=== PATIENT | female | born 1965 | race Caucasian/White ===

== ENCOUNTER 2022-05-19 09:14 | Outpatient (CLI) | payer OTHER, SELFPAY ==
[2022-05-19 13:41] LABS: Albumin* 4.1 g/dL (3.3-5.0); Chloride* 106 mmol/L (96-114); Sodium* 137 mmol/L (135-149)
[2022-05-19 13:42] LABS: Potassium* 4.4 mmol/L (3.6-5.1)
[2022-05-19 13:44] LABS: Aspartate Amino Transferase* 26 U/L (12-35); Bilirubin Total* 0.8 mg/dL (0.1-1.5); Carbon Dioxide* 26 mmol/L (20-32); Cholesterol* 210 mg/dL (90-199); Creatinine* 0.9 mg/dL (0.5-1.5); Estimated Glomerular Filt Rate 74 ml/min; Total Protein* 6.8 g/dL (6.0-8.3)
[2022-05-19 13:45] LABS: Alanine Aminotransferase* 29 U/L (4-35); Alkaline Phosphatase* 90 U/L (40-150); Blood Urea Nitrogen* 12 mg/dL (7-30); Calcium* 9.3 mg/dL (8.4-10.6); HDL Cholesterol* 65 mg/dL (>=50); LDL Cholesterol Calculated 124 mg/dL (<100); Triglycerides* 107 mg/dL (40-149); Uric Acid* 3.8 mg/dL (2.2-8.4)
[2022-05-19 13:47] LABS: C Reactive Protein* 0.7 mg/dL (0.5-1.0)
[2022-05-19 14:03] LABS: Glucose* 112 mg/dL (60-115)
[2022-05-19 14:27] LABS: Thyroid Stimulating Hormone* 0.856 uIU/mL (0.270-4.20)
== END 2022-05-19 09:15 | disposition home or self-care (01) ==
LOC: LKVLAB 09:14
PROVIDERS: PCP Physician Assistant Medical; Visit Provider Physician Assistant Medical
DX: Z00.00 Encounter for general adult medical examination without abnormal findings (principal); M25.50 Pain in unspecified joint
CPT/HCPCS: 36415; 80053; 80061; 84443; 84550; 86140; 87086

== ENCOUNTER 2023-01-07 15:57 | Outpatient (CLI) | payer OTHER, SELFPAY | END 2023-01-07 15:58 | disposition home or self-care (01) | PROVIDERS: PCP Physician Assistant Medical; Visit Provider Physician Assistant Medical | DX: M54.6 Pain in thoracic spine (principal); E78.5 Hyperlipidemia, unspecified | CPT/HCPCS: 80053; 83690 ==

== ENCOUNTER 2023-09-27 10:44 | Outpatient (CLI) | payer OTHER, SELFPAY ==
--- OUTSIDE RECORDS SUMMARY | 2023-09-27 10:47 | XMS_ITS | Continuity of Care Document ---
Author Name Unknown Organization [facility] Address [address] [place] [address] Phone Care Team Providers Care Bilingual Medical Assistant Name Role Phone Nguyễn JONES, Maya Unavailable Unavailable Allergies, Adverse Reactions, Alerts Substance Reaction Status Criticality No Known Allergies Active No Inform ation Medications Medication Instructions Dosage Effective Dates (start - stop) Status Comments LEFLUNOMIDE 20 MG TABLET TAKE 1 TABLET BY MOUTH EVERY OTHER DAY - Active FOLIC ACID 1 MG TABLET TAKE 1 TABLET BY MOUTH EVERY DAY - Active Calcium 600 + D(3) 600 mg-10 mcg (400 unit) tablet take 1 Tablet by Oral route every day 1 Tablet - Active Ambien 10 mg tablet take 1 tablet by oral route every day at bedtime 10 MG - Active nicotine 21 mg/24 hr daily transdermal patch apply 1 patch by transdermal route every day and remove at bedtime 21 MG - Active LEFLUNOMIDE 20 MG TABLET TAKE 1 TABLET BY MOUTH EVERY OTHER DAY - No Longer Active Procedures Procedure Date Routine Venipuncture Assay Of Serum Albumin Assay Of Creatinine Transferase (Ast) (Sgot) Alanine Amino (Alt) (Sgpt) Complete Cbc WAuto Diff Wbc Office/Outpatient Visit, Est Routine Venipuncture Assay Of Serum Albumin Assay Of Creatinine Transferase (Ast) (Sgot) Alanine Amino (Alt) (Sgpt) Complete Cbc WAuto Diff Wbc Routine Venipuncture Assay Of Serum Albumin Assay Of Creatinine Transferase (Ast) (Sgot) Alanine Amino (Alt) (Sgpt) Complete Cbc WAuto Diff Wbc Office/Outpatient Visit, Est Routine Venipuncture Assay Of Serum Albumin Assay Of Creatinine Transferase (Ast) (Sgot) Alanine Amino (Alt) (Sgpt) Complete Cbc WAuto Diff Wbc Routine Venipuncture Assay Of Serum Albumin Assay Of Creatinine Transferase (Ast) (Sgot) Alanine Amino (Alt) (Sgpt) CReactive Protein Complete Cbc WAuto Diff Wbc Office/Outpatient Visit, Est Routine Venipuncture Assay Of Serum Albumin Assay Of Creatinine Transferase (Ast) (Sgot) Alanine Amino (Alt) (Sgpt) CReactive Protein Complete Cbc WAuto Diff Wbc Office/Outpatient Visit, Est Routine Venipuncture Rbc Sed Rate, Nonautomated Assay Of Serum Albumin Assay Of Creatinine Transferase (Ast) (Sgot) Alanine Amino (Alt) (Sgpt) CReactive Protein Complete Cbc WAuto Diff Wbc Office/Outpatient Visit, Est Routine Venipuncture Assay Of Serum Albumin Assay Of Creatinine Transferase (Ast) (Sgot) Alanine Amino (Alt) (Sgpt) CReactive Protein Complete Cbc WAuto Diff Wbc Office/Outpatient Visit, Est Routine Venipuncture Rbc Sed Rate, Nonautomated Assay Of Serum Albumin Assay Of Creatinine Transferase (Ast) (Sgot) Alanine Amino (Alt) (Sgpt) CReactive Protein Complete Cbc WAuto Diff Wbc Office/Outpatient Visit, Est Routine Venipuncture Assay Of Serum Albumin Assay Of Creatinine Transferase (Ast) (Sgot) Alanine Amino (Alt) (Sgpt) Complete Cbc WAuto Diff Wbc Office/Outpatient Visit, Est Routine Venipuncture Assay Of Serum Albumin Assay Of Creatinine Transferase (Ast) (Sgot) Alanine Amino (Alt) (Sgpt) Complete Cbc WAuto Diff Wbc Office/Outpatient Visit, Est Routine Venipuncture Assay Of Serum Albumin Assay Of Creatinine Transferase (Ast) (Sgot) Alanine Amino (Alt) (Sgpt) Complete Cbc WAuto Diff Wbc Office/Outpatient Visit, Est Routine Venipuncture Assay Of Serum Albumin Assay Of Creatinine Transferase (Ast) (Sgot) Alanine Amino (Alt) (Sgpt) Complete Cbc WAuto Diff Wbc Office/Outpatient Visit, Est Routine Venipuncture Assay Of Serum Albumin Assay Of Creatinine Transferase (Ast) (Sgot) Alanine Amino (Alt) (Sgpt) Complete Cbc WAuto Diff Wbc Office/Outpatient Visit, Est Routine Venipuncture Assay Of Serum Albumin Assay Of Creatinine Transferase (Ast) (Sgot) Alanine Amino (Alt) (Sgpt) Complete Cbc WAuto Diff Wbc Office/Outpatient Visit, Est Routine Venipuncture Complete Cbc WAuto Diff Wbc CReactive Protein Assay Of Serum Albumin Assay Of Ck (Cpk) Assay Of Creatinine Assay Alkaline Phosphatase Transferase (Ast) (Sgot) Assay Of Blood/Uric Acid Office/Outpatient Visit, Est Office/Outpatient Visit, Est Routine Venipuncture Complete Cbc WAuto Diff Wbc Rbc Sed Rate, Nonautomated CReactive Protein Assay Of Serum Albumin Assay Of Ck (Cpk) Assay Of Creatinine Assay Alkaline Phosphatase Transferase (Ast) (Sgot) Assay Of Blood/Uric Acid Office/Outpatient Visit, Est Routine Venipuncture Complete Cbc WAuto Diff Wbc Rbc Sed Rate, Nonautomated CReactive Protein Assay Of Serum Albumin Assay Of Creatinine Transferase (Ast) (Sgot) Alanine Amino (Alt) (Sgpt) Office/Outpatient Visit, Est Routine Venipuncture Complete Cbc WAuto Diff Wbc CReactive Protein Assay Of Serum Albumin Assay Of Creatinine Transferase (Ast) (Sgot) Alanine Amino (Alt) (Sgpt) Office/Outpatient Visit, Est Office/Outpatient Visit, Est Routine Venipuncture Complete Cbc WAuto Diff Wbc Rbc Sed Rate, Nonautomated CReactive Protein Assay Of Serum Albumin Assay Of Creatinine Transferase (Ast) (Sgot) Alanine Amino (Alt) (Sgpt) Office/Outpatient Visit, Est Routine Venipuncture Complete Cbc WAuto Diff Wbc Assay Of Serum Albumin Assay Of Creatinine Transferase (Ast) (Sgot) Alanine Amino (Alt) (Sgpt) Office/Outpatient Visit, Est Routine Venipuncture Complete Cbc WAuto Diff Wbc Assay Of Serum Albumin Assay Of Creatinine Transferase (Ast) (Sgot) Alanine Amino (Alt) (Sgpt) Dxa Bone Density, Axial Office/Outpatient Visit, Est Routine Venipuncture Complete Cbc WAuto Diff Wbc CReactive Protein Assay Of Serum Albumin Assay Of Creatinine Transferase (Ast) (Sgot) Alanine Amino (Alt) (Sgpt) Office/Outpatient Visit, Est Routine Venipuncture Complete Cbc WAuto Diff Wbc Assay Of Serum Albumin Assay Of Creatinine Transferase (Ast) (Sgot) Alanine Amino (Alt) (Sgpt) Office/Outpatient Visit, Est Routine Venipuncture Specimen Handling Complete Cbc WAuto Diff Wbc Rbc Sed Rate, Nonautomated CReactive Protein Assay Of Serum Albumin Assay Of Ck (Cpk) Assay Of Creatinine Assay Alkaline Phosphatase Transferase (Ast) (Sgot) Assay Of Blood/Uric Acid Office/Outpatient Visit, Est Office/Outpatient Visit, Est Routine Venipuncture Complete Cbc WAuto Diff Wbc Rbc Sed Rate, Nonautomated CReactive Protein Assay Of Serum Albumin Assay Of Creatinine Transferase (Ast) (Sgot) Alanine Amino (Alt) (Sgpt) Office/Outpatient Visit, New Routine Venipuncture XRay Exam Of Hand 2v XRay Exam Of Hand 2v Complete Cbc WAuto Diff Wbc Rbc Sed Rate, Nonautomated CReactive Protein Assay Of Serum Albumin Assay Of Ck (Cpk) Assay Of Creatinine Assay Alkaline Phosphatase Transferase (Ast) (Sgot) Assay Of Blood/Uric Acid Advance Directives Directive Yes / No Effective Date File Name No Information Encounters Encounter Description Practice Location Reason(s) For Visit Diagnoses Date Provider Providers Copied on Encounter [facility] , [address], [place], [address], [place] tel:[phone] [facility] , No Information 3 Skemp Maya. [facility] [address], [place], [place], [address], [place]. tel:[phone] [facility] , [address], [place], [address], [place] tel:[phone] [facility] No Information 3 Skemp Maya. [facility] [address], [place], [address], [place]. tel:[phone] [facility] , [address], [place], [address], [place] tel:[phone] [facility] , No Information 3 Skemp Maya. [facility] [address], [place], [address], [place]. tel:[phone] Referring Provider: Maya Geiger, [facility] [address], [place], [address]. tel:[phone] [facility] , [address], [place], [address], [place] tel:[phone] [facility] No Information 3 Skemp Maya. [facility] [address], [place], [address], [place]. tel:[phone] Office/Outpa tient Visit, Est [facility] , [address], [place], [address], [place] tel:[phone] [facility] , Palindromic rheumatism, unspecified siteHidraden itis suppurativaO ther mcfp (current) drug therapyTrigg er fingerPrimar y osteoarthrit is, unspecified hand 3 Skemp Maya. [facility] [address], [place], [address], [place]. tel:[phone] Referring Provider: Maya Adrian A, [facility] [address], [place], [address]. tel:[phone] [facility] , [address], [place], [address], [place] tel:[phone] [facility] , No Information 2 Skemp Maya. [facility] [address], [place], [address], [place]. tel:[phone] Referring Provider: Maya Adrian A, [facility] [address], [place], [address]. tel:[phone] Office/Outpa tient Visit, Est [facility] , [address], [place], [address], [place] tel:[phone] [facility] , Palindromic rheumatismOt her remote computer terminal operator (current) drug therapyPrima ry osteoarthrit is, unspecified hand 2 Skemp Maya. [facility] [address], [place], [address], [place]. tel:[phone] Referring Provider: Maya Geiger, [facility] [address], [place], [address]. tel:[phone] [facility] , [address], [place], [address], [place] tel:[phone] [facility] , No Information 2 Skemp Maya. [facility] [address], [place], [address], [place]. tel:[phone] Referring Provider: Maya Adrian A, [facility] [address], [place], [address]. tel:[phone] Office/Outpa tient Visit, Est [facility] , [address], [place], [address], [place] tel:[phone] [facility] , Rheumatoid arthritis without rheumatoid factor, multiple sitesOther remote computer terminal operator (current) drug therapyPrima ry osteoarthrit is, unspecified handOther spondylosis, cervical region 2 Skemp Maya. [facility] [address], [place], [address], [place]. tel:[phone] Referring Provider: Maya Geiger, [facility] [address], [place], [address]. tel:[phone] Office/Outpa tient Visit, Est [facility] , [address], [place], [address], [place] tel:[phone] [facility] , Inflammatory Polyarthropa thy (chief complaint)Mo nitor Chronic High Risk Meds (chief complaint)Os teoarthritis (chief complaint) Rheumatoid arthritis without rheumatoid factor, multiple sitesOther remote computer terminal operator (current) drug therapyPrima ry osteoarthrit is, unspecified handOther spondylosis, cervical regionTingli ng skin 1 Skemp Maya. [facility] [address], [place], [address], [place]. tel:[phone] Referring Provider: Maya Geiger [facility] [address], [place], [address]. tel:[phone] Office/Outpa tient Visit, Est [facility] , [address], [place], [address], [place] tel:[phone] [facility] , Rheumatoid arthritis without rheumatoid factor, multiple sitesOther remote computer terminal operator (current) drug therapyPrima ry osteoarthrit is, unspecified hand 1 Skemp Maya. [facility] [address], [place], [address], [place]. tel:[phone] Referring Provider: Maya Geiger, [facility] [address], [place], [address]. tel:[phone] Office/Outpa tient Visit, Est [facility] , [address], [place], [address], [place] tel:[phone] [facility] , Rheumatoid arthritis without rheumatoid factor, multiple sitesOther remote computer terminal operator (current) drug therapyHidra denitis suppurativaP rimary osteoarthrit is, unspecified handOther specified counseling Dec- 1 Skemp Maya. [facility] [address], [place], [address], [place]. tel:[phone] Referring Provider: Maya Geiger, [facility] [address], [place], [address]. tel:[phone] Office/Outpa tient Visit, Est [facility] , [address], [place], [address], [place] tel:[phone] [facility] , Rheumatoid arthritis without rheumatoid factor, multiple sitesOther remote computer terminal operator (current) drug therapyHidra denitis suppurativaP leural effusion in other conditions classified elsewherePri darwin osteoarthrit is, unspecified handOther dorsalgia 0 Skemp Maya. [facility] [address], [place], [address], [place]. tel:[phone] Referring Provider: Maya Geiger, [facility] [address], [place], [address]. tel:[phone] Office/Outpa tient Visit, Est [facility] , [address], [place], [address], [place] tel:[phone] [facility] , Inflammatory Polyarthropa thy (chief complaint)Mo nitor Chronic High Risk Meds (chief complaint) Rheumatoid arthritis w/o rheumatoid factor, multiple sitesOther remote computer terminal operator (current) drug therapyPrima ry osteoarthrit is, unspecified hand Sep- 0 Skemp Maya. [facility] [address], [place], [address], [place]. tel:[phone] Referring Provider: Maya Geiger, [facility] [address], [place], [address]. tel:[phone] Office/Outpa tient Visit, Est [facility] , [address], [place], [address], [place] tel:[phone] [facility] , Inflammatory Polyarthropa thy (chief complaint)Mo nitor Chronic High Risk Meds (chief complaint) Rheumatoid arthritis w/o rheumatoid factor, multiple sitesOther remote computer terminal operator (current) drug therapy 0 Skemp Maya. [facility] [address], [place], [address], [place]. tel:[phone] Referring Provider: Maya Geiger, [facility] [address], [place], [address]. tel:[phone] Office/Outpa tient Visit, Est [facility] , [address], [place], [address], [place] tel:[phone] [facility] , Osteoarthrit is (chief complaint)In flammatory Polyarthropa thy (chief complaint)Mo nitor Chronic High Risk Meds (chief complaint) Rheumatoid arthritis w/o rheumatoid factor, multiple sitesOther mcfp (current) drug therapyPrima ry osteoarthrit is, unspecified handHidraden itis suppurativa Dec-3 Skemp Maya. [facility] [address], [place], [address], [place]. tel:[phone] Referring Provider: Maya Geiger, [facility] [address], [place], [address]. tel:[phone] Office/Outpa tient Visit, Est [facility] , [address], [place], [address], [place] tel:[phone] [facility] , Inflammatory Polyarthropa thy (chief complaint)Os teoarthritis (chief complaint)Mo nitor Chronic High Risk Meds (chief complaint) Rheumatoid arthritis w/o rheumatoid factor, multiple sitesOther mcfp (current) drug therapyHidra denitis suppurativaP rimary osteoarthrit is, unspecified hand Sep-3 9 Skemp Maya. [facility] [address], [place], [address], [place]. tel:[phone] Referring Provider: Maya Geiger, [facility] [address], [place], [address]. tel:[phone] Office/Outpa tient Visit, Est [facility] , [address], [place], [address], [place] tel:[phone] [facility] , Rheumatoid arthritis w/o rheumatoid factor, multiple sitesOther remote computer terminal operator (current) drug therapy 9 Skemp Maya. [facility] [address], [place], [address], [place]. tel:[phone] Referring Provider: Maya Geiger, [facility] [address], [place], [address]. tel:[phone] Office/Outpa tient Visit, Est [facility] , [address], [place], [address], [place] tel:[phone] [facility] , Rheumatoid arthritis w/o rheumatoid factor, multiple sitesOther mcfp (current) drug therapyPrima ry osteoarthrit is, unspecified handCough Skemp Maya. [facility] [address], [place], [address], [place]. tel:[phone] Referring Provider: Maya Geiger, [facility] [address], [place], [address]. tel:[phone] Office/Outpa tient Visit, Est [facility] , [address], [place], [address], [place] tel:[phone] [facility] , Osteoarthrit is (chief complaint)Rh eumatoid arthritis (chief complaint)Mo nitor Chronic High Risk Meds (chief complaint) Rheumatoid arthritis w/o rheumatoid factor, multiple sitesHidrade nitis suppurativaP rimary osteoarthrit is, unspecified handOther mcfp (current) drug therapy 8 Skemp Maya. [facility] [address], [place], [address], [place]. tel:[phone] Referring Provider: Maya Geiger, [facility] [address], [place], [address]. tel:[phone] Office/Outpa tient Visit, Est [facility] , [address], [place], [address], [place] tel:[phone] [facility] , Rheumatoid arthritis without rheumatoid factor, multiple sitesOther remote computer terminal operator (current) drug therapyHidra denitis suppurativa 8 Skemp Maya. [facility] [address], [place], [address], [place]. tel:[phone] Referring Provider: Maya Geiger, [facility] [address], [place], [address]. tel:[phone] Office/Outpa tient Visit, Est [facility] , [address], [place], [address], [place] tel:[phone] [facility] , Rheumatoid arthritis (chief complaint)Mo nitor Chronic High Risk Meds (chief complaint) Primary osteoarthrit is, unspecified handRheumato id arthritis without rheumatoid factor, multiple sitesOther mcfp (current) drug therapyHidra denitis suppurativaP leural effusion in other conditions classified elsewhere Skemp Maya. [facility] [address], [place], [address], [place]. tel:[phone] Referring Provider: Maya Geiger [facility] [address], [place], [address]. tel:[phone] Office/Outpa tient Visit, Est [facility] , [address], [place], [address], [place] tel:[phone] [facility] , Rheumatoid arthritis (chief complaint)Os teoarthritis (chief complaint)Mo nitor Chronic High Risk Meds (chief complaint) Rheumatoid arthritis without rheumatoid factor, multiple sitesOther remote computer terminal operator (current) drug therapyPrima ry osteoarthrit is, unspecified handHidraden itis suppurativa Skemp Maya. [facility] [address], [place], [address], [place]. tel:[phone] Referring Provider: Maya Geiger, [facility] [address], [place], [address]. tel:[phone] Office/Outpa tient Visit, Est [facility] , [address], [place], [address], [place] tel:[phone] [facility] , Rheumatoid arthritis (chief complaint)Os teoarthritis (chief complaint)Mo nitor Chronic High Risk Meds (chief complaint) Rheumatoid arthritis without rheumatoid factor, multiple sitesOther mcfp (current) drug therapyHidra denitis suppurativaP leural effusion in other conditions classified elsewhere Skemp Maya. [facility] [address], [place], [address], [place]. tel:[phone] Referring Provider: Maya Geiger, [facility] [address], [place], [address]. tel:[phone] Office/Outpa tient Visit, Est [facility] , [address], [place], [address], [place] tel:[phone] [facility] , Rheumatoid arthritis (chief complaint)Mo nitor Chronic High Risk Meds (chief complaint) Rheumatoid arthritis without rheumatoid factor, multiple sitesOther mcfp (current) drug therapyHidra denitis suppurativaP leural effusion in other conditions classified elsewhereEle vated white blood cell count, unspecified Skemp Maya. [facility] [address], [place], [address], [place]. tel:[phone] Referring Provider: Maya Geiger, [facility] [address], [place], [address]. tel:[phone] Office/Outpa tient Visit, Est [facility] , [address], [place], [address], [place] tel:[phone] [facility] , Rheumatoid arthritis (chief complaint)Mo nitor Chronic High Risk Meds (chief complaint) Primary osteoarthrit is, unspecified handRheumato id arthritis without rheumatoid factor, multiple sitesOther remote computer terminal operator (current) drug therapyHidra denitis suppurativaO ther specified counseling Skemp [facility] [address], [place], [address], [place]. tel:[phone] Referring Provider: Maya Geiger, [facility] [address], [place], [address]. tel:[phone] Office/Outpa tient Visit, Est [facility] , [address], [place], [address], [place] tel:[phone] [facility] , Rheumatoid arthritis (chief complaint) Rheumatoid arthritis without rheumatoid factor, multiple sitesOther mcfp (current) drug therapyPrima ry osteoarthrit is, unspecified handHidraden itis suppurativaO ther specified counseling Skemp [facility] [address], [place], [address], [place]. tel:[phone] Referring Provider: Maya Skemp A, [facility] [address], [place], [address]. tel:[phone] [facility] , [address], [place], [address], [place] tel:[phone] [facility] , [facility] , [facility] [address], [place], [address], [place]. tel:[phone] Referring Provider: Maya Geiger, [facility] [address], [place], [address]. tel:[phone] Office/Outpa tient Visit, [facility] , [address], [place], [address], [place] tel:[phone] [facility] , Rheumatoid arthritis (chief complaint)Mo nitor Chronic High Risk Meds (chief complaint) Rheumatoid arthritis without rheumatoid factor, multiple sitesPrimary osteoarthrit is, unspecified handHidraden itis suppurativaO ther remote computer terminal operator (current) drug therapyOther specified counseling [facility]. [facility] [address], [place], [address], [place]. tel:[phone] Referring Provider: Maya Geiger, [facility] [address], [place], [address]. tel:[phone] Office/Outpa tient Visit, [facility] , [address], [place], [address], [place] tel:[phone] [facility] , Rheumatoid arthritis (chief complaint)Os teoarthritis (chief complaint)Mo nitor Chronic High Risk Meds (chief complaint) Rheumatoid ArthritisOst eoarthrosis, localized, primary, involving handTherapeu tic Drug Monitoring [address] Maya. [facility] [address], [place], [address], [place]. tel:[phone] Referring Provider: Maya Geiger, [facility] [address], [place], [address]. tel:[phone] Office/Outpa tient Visit, [facility] , [address], [place], [address], [place] tel:[phone] [facility] , Rheumatoid Arthritis (chief complaint)Mo nitor chronic high risk medications (chief complaint) Pleural EffusionOste oarthrosis, localized, primary, involving handTherapeu tic Drug MonitoringRh eumatoid Arthritis [address] Maya. [facility] [address], [place], [address], [place]. tel:[phone] Referring Provider: Maya Geiger, [facility] [address], [place], [address]. tel:[phone] Office/Outpa tient Visit, [facility] , [address], [place], [address], [place] tel:[phone] [facility] , pleural effusions (chief complaint)in flammatory arthritis (chief complaint) Osteoarthros is, localized, primary, involving handUnspecif ied inflammatory polyarthropa thyTherapeut ic Drug MonitoringPl eural Effusion [address] Maya. [facility] [address], [place], [address], [place]. tel:[phone] Referring Provider: Maya Geiger, [facility] [address], [place], [address]. tel:[phone] Office/Outpa tient Visit, [facility] , [address], [place], [address], [place] tel:[phone] [facility] , pleural effusions (chief complaint)in flammatory arthritis (chief complaint) Pleural EffusionUnsp ecified inflammatory polyarthropa thyOsteoarth rosis, localized, primary, involving handTherapeu tic Drug Monitoring [facility] Maya. [facility] [address], [place], [address], [place]. tel:[phone] Referring Provider: Maya Geiger, [facility] [address], [place], [address]. tel:[phone] Office/Outpa tient Visit, [facility] , [address], [place], [address], [place] tel:[phone] [facility] , pleural effusions (chief complaint)fe alexia (chief complaint)ar thritis (chief complaint) Pain in joint involving handOsteoart hrosis, localized, primary, involving handUnspecif ied inflammatory polyarthropa thyPleural Effusion [address] Maya. [facility] [address], [place], [address], [place]. tel:[phone] Referring Provider: Maya Geiger, [facility] [address], [place], [address]. tel:[phone] [facility] , [address], [place], [address], [place] tel:[phone] [facility] , No Information [address] Maya. [facility] [address], [place], [address], [place]. tel:[phone] Family History Family Member Type Diagnosis Age At Onset No Information Immunizations Vaccine Date Status Comments COVID-19 [employer] administered S ource: Other Provider Payers Payer name Insurance type Covered green party ID Yoselin quijano(s) [facility] [id number] Social History Type Description Quantity Date Captured Comments Sex Female Smoking Status No Information Chief Complaint And Reason For Visit No Information Reason For Referral Reason For Referral No Information Plan Of Treatment Date Type Action Status Goal Tobacco cessation counseling completed Goal Tobacco cessation counseling completed Goal Tobacco cessation counseling completed Goal Tobacco cessation counseling completed Appointment Briseyda Chong BOOKED History Of Present Illness Encounter Date Complaint History Of Prese nt Illness Inflammatory Polyarthropathy Monitor Chronic High Risk Meds Osteoarthritis Inflammatory Polyarthropathy Monitor Chronic High Risk Meds Inflammatory Polyarthropathy Monitor Chronic High Risk Meds Osteoarthritis Inflammatory Polyarthropathy Monitor Chronic High Risk Meds Inflammatory Polyarthropathy Osteoarthritis Monitor Chronic High Risk Meds Osteoarthritis Rheumatoid arthritis Monitor Chronic High Risk Meds Rheumatoid arthritis Monitor Chronic High Risk Meds Rheumatoid arthritis Osteoarthritis Monitor Chronic High Risk Meds Rheumatoid arthritis Osteoarthritis Monitor Chronic High Risk Meds Rheumatoid arthritis Monitor Chronic High Risk Meds Rheumatoid arthritis Monitor Chronic High Risk Meds Rheumatoid arthritis Rheumatoid arthritis Monitor Chronic High Risk Meds Rheumatoid arthritis Osteoarthritis Monitor Chronic High Risk Meds Functional Status Date Functional Assessmen t No Information Instructions Date Instruction Additional Infor mation No Information Assessments Type Assessment Date No Information Patient Care Teams Name Effective Dates (start - stop) Status Members No Information
--- OUTSIDE RECORDS SUMMARY | 2023-09-27 10:48 | XMS_ITS | Continuity of Care Document ---
Author Name Unknown Organization [facility] Address [address] [place] [address] Phone Care Team Providers Care Gauger Delivery Name Role Phone Unavailable Unavailable Unavailable Advance Directives Directive Yes / No Effective Date File Name No Information Encounters Encounter Description Practice Location Reason(s) For Visit Diagnoses Date Provider Providers Copied on Encounter [facility], [address], [place], [address], [place] tel:[phone] [facility] [employer] No Information No Information Family History Family Member Type Diagnosis Age At Onset No Information Payers Payer name Insurance type Covered libertarian ID Authoriza tion(s) No Information Social History Type Description Quantity Date Captured Comments Sex Female Smoking Status No Information Chief Complaint And Reason For Visit No Information Reason For Referral Reason For Referral No Information History Of Present Illness Encounter Date Complaint History Of Prese nt Illness No Information Functional Status Date Functional Assessmen t No Information Instructions Date Instruction Additional Infor mation No Information Assessments Type Assessment Date No Information Patient Care Teams Name Effective Dates (start - stop) Status Members No Information
--- NOTE | 2023-09-27 11:00 | CRLHL7_ITS ---
For Patients: As a result of the Cures Act, medical imaging exams and procedure reports are released immediately into your electronic medical record. You may view this report before your referring provider. If you have questions, please contact your health care provider. INDICATION: Lung cancer screening. History of smoking/nicotine dependence. TECHNIQUE: Low-dose lung cancer screening non-contrast CT chest. Dose reduction techniques were used. COMPARISON: November 03, 2019. FINDINGS: NODULES: None. LUNGS AND PLEURA: Normal. MEDIASTINUM: Normal. CORONARY ARTERY CALCIFICATION: Present. LIMITED UPPER ABDOMEN: No significant findings. MUSCULOSKELETAL: No significant findings. IMPRESSION: No suspicious lung nodules. Lung-RADS Category 1: NEGATIVE. Continue annual screening with LDCT in 12 months. . Please note that all CT scans at this facility use dose modulation, iterative reconstruction, and/or weight-based dosing when appropriate to reduce radiation dose to as low as reasonably achievable. Dictated by Phil Mercedes MD @ 09/29/2023 12:50:30 PM (Electronically Signed)
== END 2023-09-27 10:45 | disposition home or self-care (01) ==
LOC: CT 10:45
PROVIDERS: PCP Physician Assistant Medical; Visit Provider Physician Assistant Medical
DX: Z12.2 Encounter for screening for malignant neoplasm of respiratory organs (principal); Z87.891 Personal history of nicotine dependence
CPT/HCPCS: 71271

== ENCOUNTER 2023-10-14 18:21 | Emergency (ER) | payer OTHER, SELFPAY ==
[2023-10-14 18:30] VITALS: BP 97/61; PULSE 124; RESP 16; TEMP 37; O2SAT 98; BMI 28.3
--- NOTE | 2023-10-14 18:46 | CRLHL7_ITS ---
For Patients: As a result of the Century Cures Act, medical imaging exams and procedure reports are released immediately into your electronic medical record. You may view this report before your referring provider. If you have questions, please contact your health care provider. INDICATION: Left lower quadrant pain. TECHNIQUE: CT abdomen and pelvis acquired with 79 cc of Isovue 370 IV contrast. COMPARISON: CT abdomen and pelvis 01/24/2018. FINDINGS: Lower chest: Unremarkable. Liver: Fatty change. No focal lesion. Spleen: Unremarkable. Pancreas: Unremarkable. Gallbladder and bile ducts: Unremarkable. Kidneys: Unremarkable. Adrenal glands: Unremarkable. GI tract: There is circumferential thickening and mild pericolonic stranding of the colon which begins in the distal transverse colon and extends to the sigmoid colon. Distal colonic diverticulosis is present, however, findings do not appear to represent diverticulitis. No pneumatosis or free intraperitoneal gas. No bowel obstruction. Normal appendix. No free fluid or suspicious fluid collection. Vascular structures: Mild atherosclerotic disease. No abdominal aortic aneurysm. Lymph nodes: Unremarkable. Pelvic Organs: Uterus, adnexal regions and bladder as imaged are unremarkable. Bones: No acute or suspicious abnormality. Spinal fusion hardware at L3 through L5 shows no evidence of complication. Degenerative changes of the spine and pelvis. Grade 1 anterolisthesis of L5 on S1 is new/increased. IMPRESSION: 1. Colitis extending from the distal transverse to sigmoid colon. Distal colonic diverticulosis is present, however, findings do not appear to represent diverticulitis and other causes for colitis should be considered. No pneumatosis or free intraperitoneal gas. No free fluid. 2. Fatty change of the liver. Dictated by Handy Reis MD @ 10/14/2023 8:01:54 PM Please note that all CT scans at this facility use dose modulation, iterative reconstruction, and/or weight-based dosing when appropriate to reduce radiation dose to as low as reasonably achievable. Dictated by: Handy Reis MD @ 10/14/2023 20:02:08 (Electronically Signed)
--- NOTE | 2023-10-14 18:50 | ED_ITS ---
HPI - Abdominal Pain General Date Seen: 10/14/23 Chief Complaint: Abdominal Pain Stated Complaint: stomach pain Time Seen by Provider: 10/14/23 18:36 Source: patient Mode of arrival: ambulatory Limitations: no limitations History of Present Illness HPI narrative: Patient is a 58-year-old female with history of steatosis of the liver, irritable bowel syndrome presenting to the emergency department for left lower quadrant abdominal pain. She says the pain started last night. She initially had nausea and vomiting but has not vomited since this morning. Still feeling nauseated. Has not been able eat or drink much today due to that. Says she has had pain like this before when she was told she had colitis. Does states she had chills and diaphoresis last night. He is still feeling chilled but has not had any objective fevers. Has had a lot of diarrhea today and has also noted blood in her stool. Her latest bowel movement she states was mostly blood. Denies chest pain, shortness of breath, weakness, numbness, headache, vision changes, lightheadedness, dizziness. She does states she feels dehydrated though. No previous abdominal surgeries. Related Data Home Medications Medication Instructions Recorded Confirmed calcium carbonate 600 mg-vitamin 2 cap PO DAILY 07/15/22 07/28/23 D3 5 mcg (200 unit) capsule folic acid 1 mg tablet 1 mg PO QDAY 07/15/22 07/28/23 leflunomide 10 mg tablet 10 mg PO DAILY 07/15/22 07/28/23 Previous Rx's Medication Instructions Recorded solifenacin 10 mg tablet (Vesicare) 10 mg PO QDAY #90 tabs 06/29/22 bupropion HCl 150 mg tablet,12 hr 150 mg PO BID #180 tabs 05/24/23 sustained-release albuterol sulfate 90 mcg/actuation 2 puff inhalation Q4-6H PRN 07/28/23 aerosol inhaler bronchospasm #8.5 grams gabapentin 300 mg capsule 600 mg (2 x 300 mg) PO QHS #180 07/28/23 caps hydroxyzine pamoate 50 mg capsule 50 mg PO QHS #90 caps 08/11/23 zolpidem 10 mg tablet 10 mg PO QHS PRN insomnia #30 tabs 08/11/23 lorazepam 1 mg tablet 1 mg PO Q6-8H PRN Flight anxiety 11/06/23 #10 tabs ciprofloxacin HCl 500 mg tablet 500 mg PO BID #10 tabs 10/14/23 Allergies Allergy/AdvReac Type Severity Reaction Status Date / Time No Known Allergies Allergy Unknown Verified 10/14/23 19:29 Review of Systems Status of ROS Reports: 10 or more systems reviewed and unremarkable except as noted in History and below [facility] Medical History Hx of Clostridium difficile infection ?Z86.19 - Personal history of other infectious and parasitic diseases (ICD- 10) History of colitis ?Z87.19 - Personal history of other diseases of the digestive system (ICD-10) Lung collapse ?J98.19 - Other pulmonary collapse (ICD-10) Left foot pain ?M79.672 - Pain in left foot (ICD-10) Postconcussion syndrome ?F07.81 - Postconcussional syndrome (ICD-10) Tobacco abuse ?Z72.0 - Tobacco use (ICD-10) Surgical History History of lumbar fusion ?Z98.1 - Arthrodesis status (ICD-10) History of laminectomy ?Z98.890 - Other specified postprocedural states (ICD-10) History of bunionectomy of both great toes ?Z98.890 - Other specified postprocedural states (ICD-10) Family History Father Coronary artery disease High blood pressure Other AAA (abdominal aortic aneurysm) Social History Narrative: does not use illicit drugs occasional alcohol consumption smoker Smoking Status: Former smoker Little interest or pleasure in doing things: not at all Feeling down, depressed, or hopeless: not at all Exam Narrative: Exam Narrative: Const: Well-nourished, Well-developed, in mild distress Eyes: PERRL, no conjunctival injection, and symmetrical lids HENT: Atraumatic external nose and ears. Moist mucous membranes. Neck: Symmetric, trachea midline, No thyromegaly. CVS: RRR, No murmurs or gallops. Peripheral pulses 2+ and equal in all extremities RESP: Unlabored respiratory effort. Clear to auscultation bilaterally. GI: Left lower quadrant tenderness, Nondistended, No rebound or guarding. MSK:Extremities w/o deformity, Normal Active ROM Skin: Warm, Dry. No rashes or lesions. Neuro: Normal Muscle tone, No focal neurological deficits. Psych: Awake, Alert, & Oriented x3. Appropriate mood and affect. Const: Vital Signs, click to edit/add: Vital Signs - 24 hr 10/14/23 18:30 Temperature 98.6 F Pulse Rate [Pulse Oximeter] 124 H Respiratory Rate 16 Blood Pressure [Ri t Upper Arm] 97/61 Pulse Oximetry 98 Oxygen Delivery Me thod Room Air Course Vital Signs Vital signs: Initial Vital Signs Temperature 98.6 F 10/14/23 18:30 Temperature Source Oral 10/14/23 18:30 Pulse Rate 124 H 10/14/23 18:30 Pulse Rhythm Regular 10/14/23 18:30 Respiratory Rate 16 10/14/23 18:30 Blood Pressure 97/61 10/14/23 18:30 Blood Pressure Mean 73 10/14/23 18:30 Blood Pressure Position Sitting 10/14/23 18:30 Pulse Oximetry 98 10/14/23 18:30 Oxygen Delivery Method Room Air 10/14/23 18:30 Vital Signs Temperature 98.6 F 10/14/23 18:30 Pulse Rate 124 H 10/14/23 18:30 Respiratory Rate 16 10/14/23 18:30 Blood Pressure 97/61 10/14/23 18:30 Pulse Oximetry 98 10/14/23 18:30 Oxygen Delivery Method Room Air 10/14/23 18:30 Temperature 98.6 F 10/14/23 18:30 Pulse Rate 124 H 10/14/23 18:30 Respiratory Rate 16 10/14/23 18:30 Blood Pressure 97/61 10/14/23 18:30 Pulse Oximetry 98 10/14/23 18:30 Oxygen Delivery Method Room Air 10/14/23 18:30 Medications Administered Medications: Discontinued Medications Generic Name Dose Route Start Last Admin Trade Name Freq PRN Reason Stop Dose Admin Lactated Ringer's 1,000 mls @ 1,000 mls/hr 10/14/23 18:46 10/14/23 21:54 Lactated Ringers 1000 Ml IV 10/14/23 19:45 Infused .Q1H ONE Infusion Morphine Sulfate 4 mg 10/14/23 18:46 10/14/23 19:22 Morphine 4 Mg/Ml Inj IVP 10/14/23 18:47 4 mg ONCE ONE Administration Ondansetron HCl 4 mg 10/14/23 18:46 10/14/23 19:22 Ondansetron 2 Mg/Ml Inj IVP 10/14/23 18:47 4 mg ONCE ONE Administration MDM - Abdominal Pain MDM Narrative Medical decision making narrative: Patient is a 58-year-old female presented emergency department for diffuse abdominal pain worse in the left lower quadrant. She states she has had symptoms like this before she has had colitis. Differential at this time includes colitis, diverticulitis, viral syndrome. She has no history of ulcerative colitis or Crohn's disease. She has had C diff in the past. She is tachycardic right now I will order septic workup. Ulcer CT scan of the abdomen and pelvis with IV contrast. CBC returned with white count of 17 with as mostly neutrophils. This does seem consistent with an infection. CMP shows no concerning findings. Lipase within normal limits. Lactic acid within normal limits. Urinalysis shows no concerning findings. COVID and flu were negative. The CT scan returned showing what appears to be diffuse colitis. Are considered to the C diff test at her but she cannot have a bowel movement spicy multiple times in the emergency department so CT of seems unlikely. Her heart rate improved significantly after fluids were given. She is feeling much better at this time. States the Zofran and morphine helped. Will with the blood in her stool also I believe this is likely infectious colitis so I will start her on empiric antibiotics. She is agreeable to this plan. She will be given zofran and oxycodone through [facility]. Lab Data Labs: Lab Results 10/14/23 10/14/23 10/14/23 Range/Units 18:46 19:04 19:10 WBC 17.04 H (4.50-11.00) K/uL RBC 4.58 (4.00-5.20) m/uL Hgb 14.1 (12.0-16.0) gm/dL Hct 43.5 (33.0-51.0) % MCV 95 (80-100) fL MCH 31 (26-34) pg MCHC 32 (32-36) gm/dL RDW Coeff of Delmer 12.2 (11.5-15.5) % Plt Count 373 (140-440) K/uL Neut % (Auto) 77.1 H (42.0-72.0) % Lymph % (Auto) 13.7 L (20-44) % [place] % (Auto) 8.5 (0.0-11.0) % Eos % (Auto) 0.4 (0.0-7.0) % Baso % (Auto) 0.1 (0.0-3.0) % Neut # (Auto) 13.10 H (1.7-7.0) K/uL Lymph # (Auto) 2.30 (0.90-2.90) K/uL [place] # (Auto) 1.40 H (0.00-0.90) K/UL Eos # (Auto) 0.10 (0.00-0.50) K/uL Baso # (Auto) 0.00 (0.00-0.30) K/uL Abs Immat Gran (auto) 0.00 (0.00-0.30) K/uL Imm/Tot Granulo (auto) 0.2 % Sodium 136 (135-149) mmol/L Potassium 3.9 (3.6-5.1) mmol/L Chloride 103 (96-114) mmol/L Carbon Dioxide 26 (20-32) mmol/L Anion Gap 7 (7-15) mEq/L BUN 12 (7-30) mg/dL Creatinine 0.8 (0.5-1.5) mg/dL Estimated Creat Clear 61.86 Estimated GFR 84 ml/min Glucose 117 H (60-115) mg/dL Lactate 1.2 (0.5-1.9) mmol/L Calcium 9.3 (8.4-10.6) mg/dL Total Bilirubin 0.5 (0.1-1.5) mg/dL AST 31 (12-35) U/L ALT 33 (4-35) U/L Alkaline Phosphatase 108 (40-150) U/L Total Protein 8.4 H (6.0-8.3) g/dL Albumin 4.9 (3.3-5.0) g/dL Lipase 102 (23-300) U/L Urine Color Yellow (Yellow) Urine Appearance Clear (Clear) Urine pH 7.0 (5.0-8.5) Ur Specific [place] 1.010 (1.000-1.030) Urine Protein Negative (Negative) Urine Glucose (UA) Negative (Negative) Urine Ketones Negative (Negative) Urine Blood Negative (Negative) Urine Nitrite Negative (Negative) Urine Bilirubin Negative (Negative) Urine Urobilinogen 0.2 (0.2-1.0) Ur Leukocyte Esterase Negative (Negative) Urine RBC 0-2 (0-2) Urine WBC 0-2 (0-5) Ur Squamous Epith Cells None (None-Few) Urine Bacteria None (None) SARS-CoV-2 (PCR) (Negative) Influenza Type A (PCR) (Negative) Influenza Type B (PCR) (Negative) POC Creatinine 1.0 (0.6-1.3) mg/dl 10/14/23 10/14/23 Range/Units 19:10 19:17 WBC (4.50-11.00) K/uL RBC (4.00-5.20) m/uL Hgb (12.0-16.0) gm/dL Hct (33.0-51.0) % MCV (80-100) fL MCH (26-34) pg MCHC (32-36) gm/dL RDW Coeff of Delmer (11.5-15.5) % Plt Count (140-440) K/uL Neut % (Auto) (42.0-72.0) % Lymph % (Auto) (20-44) % [place] % (Auto) (0.0-11.0) % Eos % (Auto) (0.0-7.0) % Baso % (Auto) (0.0-3.0) % Neut # (Auto) (1.7-7.0) K/uL Lymph # (Auto) (0.90-2.90) K/uL [place] # (Auto) (0.00-0.90) K/UL Eos # (Auto) (0.00-0.50) K/uL Baso # (Auto) (0.00-0.30) K/uL Abs Immat Gran (auto) (0.00-0.30) K/uL Imm/Tot Granulo (auto) % Sodium (135-149) mmol/L Potassium (3.6-5.1) mmol/L Chloride (96-114) mmol/L Carbon Dioxide (20-32) mmol/L Anion Gap (7-15) mEq/L BUN (7-30) mg/dL Creatinine (0.5-1.5) mg/dL Estimated Creat Clear Estimated GFR ml/min Glucose (60-115) mg/dL Lactate (0.5-1.9) mmol/L Calcium (8.4-10.6) mg/dL Total Bilirubin (0.1-1.5) mg/dL AST (12-35) U/L ALT (4-35) U/L Alkaline Phosphatase (40-150) U/L Total Protein (6.0-8.3) g/dL Albumin (3.3-5.0) g/dL Lipase Cancelled (23-300) U/L Urine Color (Yellow) Urine Appearance (Clear) Urine pH (5.0-8.5) Ur Specific [place] (1.000-1.030) Urine Protein (Negative) Urine Glucose (UA) (Negative) Urine Ketones (Negative) Urine Blood (Negative) Urine Nitrite (Negative) Urine Bilirubin (Negative) Urine Urobilinogen (0.2-1.0) Ur Leukocyte Esterase (Negative) Urine RBC (0-2) Urine WBC (0-5) Ur Squamous Epith Cells (None-Few) Urine Bacteria (None) SARS-CoV-2 (PCR) Negative SARS-CoV-2 (Negative) Influenza Type A (PCR) Negative PCR FLU A (Negative) Influenza Type B (PCR) Negative PCR FLU B (Negative) POC Creatinine (0.6-1.3) mg/dl Imaging Data CT scan abdomen pelvis: Radiologist's impression: 1. Colitis extending from the distal transverse to sigmoid colon. Distal colonic diverticulosis is present, however, findings do not appear to represent diverticulitis and other causes for colitis should be considered. No pneumatosis or free intraperitoneal gas. No free fluid. 2. Fatty change of the liver. Dictated by Handy Reis MD @ 10/14/2023 8:01:54 PM Please note that all CT scans at this facility use dose modulation, iterative reconstruction, and/or weight-based dosing when appropriate to reduce radiation dose to as low as reasonably achievable. Dictated by: Handy Reis MD @ 10/14/2023 20:02:08 Discharge Plan Discharge Clinical Impression: Colitis Patient Disposition: Home, Self-Care Condition: Improved Instructions: Colitis (ED) Additional Instructions: Take antibiotics as directed. If symptoms persist follow-up with primary care provider. Return to emergency department for new or worsening symptoms Prescriptions: New ciprofloxacin HCl 500 mg tablet 500 mg PO BID Qty: 10 0RF No Action gabapentin 300 mg capsule 600 mg PO QHS Qty: 180 0RF Rx Instructions: once nightly for sleep albuterol sulfate 90 mcg/actuation HFA aerosol inhaler 2 puff inhalation Q4-6H PRN (Reason: bronchospasm) Qty: 8.5 0RF leflunomide 10 mg tablet 10 mg PO DAILY folic acid 1 mg tablet 1 mg PO QDAY calcium carbonate-vitamin D3 600 mg-5 mcg (200 unit) capsule 2 cap PO DAILY solifenacin [Vesicare] 10 mg tablet 10 mg PO QDAY Qty: 90 3RF bupropion HCl 150 mg tablet sustained-release 12 hr 150 mg PO BID Qty: 180 3RF zolpidem 10 mg tablet 10 mg PO QHS PRN (Reason: insomnia) Qty: 30 0RF hydroxyzine pamoate 50 mg capsule 50 mg PO QHS Qty: 90 0RF Rx Instructions: take one tablet nightly to help with sleep lorazepam 1 mg tablet 1 mg PO Q6-8H PRN (Reason: Flight anxiety) Qty: 10 0RF Follow Up/Referrals: Veena Lopez PA-C [Primary Care Provider] - Stand Alone Forms: [employer] Info Instructions
--- OUTSIDE RECORDS SUMMARY | 2023-10-14 19:06 | XMS_ITS | Continuity of Care Document ---
Author Name Unknown Organization [facility] Address [address] [address] [place] [address] Phone Care Team Providers Care Therapist Name Role Phone Erlinda Ayon MD Unavaila ble Advance Directives Directive Yes / No Effective Date File Name No Information Encounters Encounter Description Practice Location Reason(s) For Visit Diagnoses Date Provider Providers Copied on Encounter [facility], [address] [address], [place], [place], [id number], [place] tel:[phone] [facility] No Information Gabo Kim [address] [facility], [place] [address], [place], [place], [id number] , [place]. tel:[phone] Referring Provider: [place] Heath [place] J, [address] [place], [address]. tel:[phone] Family History Family Member Type Diagnosis Age At Onset No Information Payers Payer name Insurance type Covered green party ID Authoriza tion(s) No Information Social History [...]
--- NOTE | 2023-10-14 19:07 | PC.NURSE ---
Assume care of this pt. Pt returning from Br-urine sent as ordered. Pt with steady gait. So at BS and suppportive. LIning and labs in progress
--- OUTSIDE RECORDS SUMMARY | 2023-10-14 19:07 | XMS_ITS | Continuity of Care Document ---
Author Name Unknown Organization [facility] Address [address] [place] [address] Phone Care Team Providers Care Manager Pediatric Name Role Phone Nguyễn JONES, Maya Unavailable [...] [address], [place], [address], [place] tel:[phone] [facility] , No Information 3 Skemp Maya. [facility] [address], [place], [place], [address], [place]. tel:[phone] [facility] , [address], [place], [address], [place] tel:[phone] [facility] [place] No Information 3 Skemp Maya. [facility] [address], [place], [address], [place]. tel:[phone] [facility] , [address], [place], [address], [place] tel:[phone] [facility] , No Information 3 Skemp Maya. [facility] [address], [place], [address], [place]. tel:[phone] Referring Provider: Maya Geiger, [facility] [address], [place], [address]. tel:[phone] [facility] , [address], [place], [address], [place] tel:[phone] [facility] [place] No Information 3 Skemp Maya. [facility] [address], [place], [address], [place]. tel:[phone] Office/Outpa tient Visit, Est [facility] , [address], [place], [address], [place] tel:[phone] [facility] , Palindromic rheumatism, unspecified siteHidraden itis suppurativaO ther longterm (current) drug therapyTrigg er fingerPrimar y osteoarthrit is, unspecified hand 3 Skemp Maya. [facility] [address], [place], [address], [place]. tel:[phone] Referring Provider: Maya Adrian A, [facility] [address], [place], [address]. tel:[phone] [facility] , [address], [place], [address], [place] tel:[phone] [facility] , No Information 2 Skemp Maya. [facility] [address], [place], [address], [place]. tel:[phone] Referring Provider: Maya Adrian A, [facility] [address], [place], [address]. tel:[phone] Office/Outpa tient Visit, Est [facility] , [address], [place], [address], [place] tel:[phone] [facility] , Palindromic rheumatismOt her intermission coordinator (current) drug therapyPrima ry osteoarthrit is, unspecified hand 2 Skemp Maya. [facility] [address], [place], [address], [place]. tel:[phone] Referring Provider: Maya Geiger, [facility] [address], [place], [address]. tel:[phone] [facility] , [address], [place], [address], [place] tel:[phone] [facility] , No Information 2 Skemp Maya. [facility] [address], [place], [address], [place]. tel:[phone] Referring Provider: Maya Adrian A, [facility] [address], [place], [address]. tel:[phone] Office/Outpa tient Visit, Est [facility] , [address], [place], [address], [place] tel:[phone] [facility] , Rheumatoid arthritis without rheumatoid factor, multiple sitesOther intermission coordinator (current) drug therapyPrima ry osteoarthrit is, unspecified handOther spondylosis, cervical region 2 Skemp Maya. [facility] [address], [place], [address], [place]. tel:[phone] Referring Provider: Maya Geiger, [facility] [address], [place], [address]. tel:[phone] Office/Outpa tient Visit, Est [facility] , [address], [place], [address], [place] tel:[phone] [facility] , Inflammatory Polyarthropa thy (chief complaint)Mo nitor Chronic High Risk Meds (chief complaint)Os teoarthritis (chief complaint) Rheumatoid arthritis without rheumatoid factor, multiple sitesOther intermission coordinator (current) drug therapyPrima ry osteoarthrit is, unspecified handOther spondylosis, cervical regionTingli ng skin 1 Skemp Maya. [facility] [address], [place], [address], [place]. tel:[phone] Referring Provider: Maya Geiger [facility] [address], [place], [address]. tel:[phone] Office/Outpa tient Visit, Est [facility] , [address], [place], [address], [place] tel:[phone] [facility] , Rheumatoid arthritis without rheumatoid factor, multiple sitesOther intermission coordinator (current) drug therapyPrima ry osteoarthrit is, unspecified hand 1 Skemp Maya. [facility] [address], [place], [address], [place]. tel:[phone] Referring Provider: Maya Geiger, [facility] [address], [place], [address]. tel:[phone] Office/Outpa tient Visit, Est [facility] , [address], [place], [address], [place] tel:[phone] [facility] , Rheumatoid arthritis without rheumatoid factor, multiple sitesOther intermission coordinator (current) drug therapyHidra denitis suppurativaP rimary osteoarthrit is, unspecified handOther specified counseling Dec- 1 Skemp Maya. [facility] [address], [place], [address], [place]. tel:[phone] Referring Provider: Maya Geiger, [facility] [address], [place], [address]. tel:[phone] Office/Outpa tient Visit, Est [facility] , [address], [place], [address], [place] tel:[phone] [facility] , Rheumatoid arthritis without rheumatoid factor, multiple sitesOther intermission coordinator (current) drug therapyHidra denitis suppurativaP leural effusion in other conditions classified elsewherePri darwin osteoarthrit is, unspecified handOther dorsalgia 0 Skemp Maya. [facility] [address], [place], [address], [place]. tel:[phone] Referring Provider: Maya Geiger, [facility] [address], [place], [address]. tel:[phone] Office/Outpa tient Visit, Est [facility] , [address], [place], [address], [place] tel:[phone] [facility] , Inflammatory Polyarthropa thy (chief complaint)Mo nitor Chronic High Risk Meds (chief complaint) Rheumatoid arthritis w/o rheumatoid factor, multiple sitesOther intermission coordinator (current) drug therapyPrima ry osteoarthrit is, unspecified hand Sep- 0 Skemp Maya. [facility] [address], [place], [address], [place]. tel:[phone] Referring Provider: Maya Geiger, [facility] [address], [place], [address]. tel:[phone] Office/Outpa tient Visit, Est [facility] , [address], [place], [address], [place] tel:[phone] [facility] , Inflammatory Polyarthropa thy (chief complaint)Mo nitor Chronic High Risk Meds (chief complaint) Rheumatoid arthritis w/o rheumatoid factor, multiple sitesOther intermission coordinator (current) drug therapy 0 Skemp Maya. [facility] [address], [place], [address], [place]. tel:[phone] Referring Provider: Maya Geiger, [facility] [address], [place], [address]. tel:[phone] Office/Outpa tient Visit, Est [facility] , [address], [place], [address], [place] tel:[phone] [facility] , Osteoarthrit is (chief complaint)In flammatory Polyarthropa thy (chief complaint)Mo nitor Chronic High Risk Meds (chief complaint) Rheumatoid arthritis w/o rheumatoid factor, multiple sitesOther longterm (current) drug therapyPrima ry osteoarthrit is, unspecified handHidraden itis suppurativa Dec-3 Skemp Maya. [facility] [address], [place], [address], [place]. tel:[phone] Referring Provider: Maya Geiger, [facility] [address], [place], [address]. tel:[phone] Office/Outpa tient Visit, Est [facility] , [address], [place], [address], [place] tel:[phone] [facility] , Inflammatory Polyarthropa thy (chief complaint)Os teoarthritis (chief complaint)Mo nitor Chronic High Risk Meds (chief complaint) Rheumatoid arthritis w/o rheumatoid factor, multiple sitesOther longterm (current) drug therapyHidra denitis suppurativaP rimary osteoarthrit is, unspecified hand Sep-3 9 Skemp Maya. [facility] [address], [place], [address], [place]. tel:[phone] Referring Provider: Maya Geiger, [facility] [address], [place], [address]. tel:[phone] Office/Outpa tient Visit, Est [facility] , [address], [place], [address], [place] tel:[phone] [facility] , Rheumatoid arthritis w/o rheumatoid factor, multiple sitesOther intermission coordinator (current) drug therapy 9 Skemp Maya. [facility] [address], [place], [address], [place]. tel:[phone] Referring Provider: Maya Geiger, [facility] [address], [place], [address]. tel:[phone] Office/Outpa tient Visit, Est [facility] , [address], [place], [address], [place] tel:[phone] [facility] , Rheumatoid arthritis w/o rheumatoid factor, multiple sitesOther longterm (current) drug therapyPrima ry osteoarthrit is, unspecified handCough Skemp Maya. [facility] [address], [place], [address], [place]. tel:[phone] Referring Provider: Maya Geiger, [facility] [address], [place], [address]. tel:[phone] Office/Outpa tient Visit, Est [facility] , [address], [place], [address], [place] tel:[phone] [facility] , Osteoarthrit is (chief complaint)Rh eumatoid arthritis (chief complaint)Mo nitor Chronic High Risk Meds (chief complaint) Rheumatoid arthritis w/o rheumatoid factor, multiple sitesHidrade nitis suppurativaP rimary osteoarthrit is, unspecified handOther longterm (current) drug therapy 8 Skemp Maya. [facility] [address], [place], [address], [place]. tel:[phone] Referring Provider: Maya Geiger, [facility] [address], [place], [address]. tel:[phone] Office/Outpa tient Visit, Est [facility] , [address], [place], [address], [place] tel:[phone] [facility] , Rheumatoid arthritis without rheumatoid factor, multiple sitesOther intermission coordinator (current) drug therapyHidra denitis suppurativa 8 Skemp Maya. [facility] [address], [place], [address], [place]. tel:[phone] Referring Provider: Maya Geiger, [facility] [address], [place], [address]. tel:[phone] Office/Outpa tient Visit, Est [facility] , [address], [place], [address], [place] tel:[phone] [facility] , Rheumatoid arthritis (chief complaint)Mo nitor Chronic High Risk Meds (chief complaint) Primary osteoarthrit is, unspecified handRheumato id arthritis without rheumatoid factor, multiple sitesOther longterm (current) drug therapyHidra denitis suppurativaP leural effusion in other conditions classified elsewhere Skemp Maya. [facility] [address], [place], [address], [place]. tel:[phone] Referring Provider: Maya Geiger [facility] [address], [place], [address]. tel:[phone] Office/Outpa tient Visit, Est [facility] , [address], [place], [address], [place] tel:[phone] [facility] , Rheumatoid arthritis (chief complaint)Os teoarthritis (chief complaint)Mo nitor Chronic High Risk Meds (chief complaint) Rheumatoid arthritis without rheumatoid factor, multiple sitesOther intermission coordinator (current) drug therapyPrima ry osteoarthrit is, unspecified handHidraden itis suppurativa Skemp Maya. [facility] [address], [place], [address], [place]. tel:[phone] Referring Provider: Maya Geiger, [facility] [address], [place], [address]. tel:[phone] Office/Outpa tient Visit, Est [facility] , [address], [place], [address], [place] tel:[phone] [facility] , Rheumatoid arthritis (chief complaint)Os teoarthritis (chief complaint)Mo nitor Chronic High Risk Meds (chief complaint) Rheumatoid arthritis without rheumatoid factor, multiple sitesOther longterm (current) drug therapyHidra denitis suppurativaP leural effusion in other conditions classified elsewhere Skemp Maya. [facility] [address], [place], [address], [place]. tel:[phone] Referring Provider: Maya Geiger, [facility] [address], [place], [address]. tel:[phone] Office/Outpa tient Visit, Est [facility] , [address], [place], [address], [place] tel:[phone] [facility] , Rheumatoid arthritis (chief complaint)Mo nitor Chronic High Risk Meds (chief complaint) Rheumatoid arthritis without rheumatoid factor, multiple sitesOther longterm (current) drug therapyHidra denitis suppurativaP leural effusion in other conditions classified elsewhereEle vated white blood cell count, unspecified Skemp Maya. [facility] [address], [place], [address], [place]. tel:[phone] Referring Provider: Maya Geiger, [facility] [address], [place], [address]. tel:[phone] Office/Outpa tient Visit, Est [facility] , [address], [place], [address], [place] tel:[phone] [facility] , Rheumatoid arthritis (chief complaint)Mo nitor Chronic High Risk Meds (chief complaint) Primary osteoarthrit is, unspecified handRheumato id arthritis without rheumatoid factor, multiple sitesOther intermission coordinator (current) drug therapyHidra denitis suppurativaO ther specified counseling Skemp [facility] [address], [place], [address], [place]. tel:[phone] Referring Provider: Maya Geiger, [facility] [address], [place], [address]. tel:[phone] Office/Outpa tient Visit, Est [facility] , [address], [place], [address], [place] tel:[phone] [facility] , Rheumatoid arthritis (chief complaint) Rheumatoid arthritis without rheumatoid factor, multiple sitesOther longterm (current) drug therapyPrima ry osteoarthrit is, unspecified handHidraden itis suppurativaO ther specified counseling Skemp [facility] [address], [place], [address], [place]. tel:[phone] Referring Provider: Maya Skemp A, [facility] [address], [place], [address]. tel:[phone] [facility] , [address], [place], [address], [place] tel:[phone] [facility] , Encounter for screening for osteoporosis [facility] Maya. [facility] [address], [place], [address], [place]. tel:[phone] Referring Provider: Maya Geiger, [facility] [address], [place], [address]. tel:[phone] Office/Outpa tient Visit, Est [facility] , [address], [place], [address], [place] tel:[phone] [facility] , Rheumatoid arthritis (chief complaint)Mo nitor Chronic High Risk Meds (chief complaint) Rheumatoid arthritis without rheumatoid factor, multiple sitesPrimary osteoarthrit is, unspecified handHidraden itis suppurativaO ther intermission coordinator (current) drug therapyOther specified counseling [facility] Maya. [facility] [address], [place], [address], [place]. tel:[phone] Referring Provider: Maya Geiger, [facility] [address], [place], [address]. tel:[phone] Office/Outpa tient Visit, Est [facility] , [address], [place], [address], [place] tel:[phone] [facility] , Rheumatoid arthritis (chief complaint)Os teoarthritis (chief complaint)Mo nitor Chronic High Risk Meds (chief complaint) Rheumatoid ArthritisOst eoarthrosis, localized, primary, involving handTherapeu tic Drug Monitoring 5 Skemp Maya. [facility] [address], [place], [address], [place]. tel:[phone] Referring Provider: Maya Geiger, [facility] [address], [place], [address]. tel:[phone] Office/Outpa tient Visit, Est [facility] , [address], [place], [address], [place] tel:[phone] [facility] , Rheumatoid Arthritis (chief complaint)Mo nitor chronic high risk medications (chief complaint) Pleural EffusionOste oarthrosis, localized, primary, involving handTherapeu tic Drug MonitoringRh eumatoid Arthritis 4 Skemp Maya. [facility] [address], [place], [address], [place]. tel:[phone] Referring Provider: Maya Geiger, [facility] [address], [place], [address]. tel:[phone] Office/Outpa tient Visit, Est [facility] , [address], [place], [address], [place] tel:[phone] [facility] , pleural effusions (chief complaint)in flammatory arthritis (chief complaint) Osteoarthros is, localized, primary, involving handUnspecif ied inflammatory polyarthropa thyTherapeut ic Drug MonitoringPl eural Effusion 4 Skemp Maya. [facility] [address], [place], [address], [place]. tel:[phone] Referring Provider: Maya Geiger, [facility] [address], [place], [address]. tel:[phone] Office/Outpa tient Visit, Est [facility] , [address], [place], [address], [place] tel:[phone] [facility] , pleural effusions (chief complaint)in flammatory arthritis (chief complaint) Pleural EffusionUnsp ecified inflammatory polyarthropa thyOsteoarth rosis, localized, primary, involving handTherapeu tic Drug Monitoring Skemp Maya. [facility] [address], [place], [address], [place]. tel:[phone] Referring Provider: Maya Geiger, [facility] [address], [place], [address]. tel:[phone] Office/Outpa tient Visit, New [facility] , [address], [place], [address], [place] tel:[phone] [facility] , pleural effusions (chief complaint)fe alexia (chief complaint)ar thritis (chief complaint) Pain in joint involving handOsteoart hrosis, localized, primary, involving handUnspecif ied inflammatory polyarthropa thyPleural Effusion 4 Skemp Maya. [facility] [address], [place], [address], [place]. tel:[phone] Referring Provider: Maya Geiger, [facility] [address], [place], [address]. tel:[phone] [facility] , [address], [place], [address], [place] tel:[phone] [facility] , No Information 201 4 Skemp Maya. [facility] [address], [place], [address], [place]. tel:[phone] Family History Family Member Type Diagnosis Age At Onset No Information Immunizations Vaccine Date Status Comments COVID-19 [employer] administered S ource: Other Provider Payers Payer name Insurance type Covered constitution party ID Yoselin quijano(s) [facility] [id number] Social History Type Description Quantity Date Captured [...]
--- OUTSIDE RECORDS SUMMARY | 2023-10-14 19:07 | XMS_ITS | Continuity of Care Document ---
Author Name Unknown Organization [facility] Address [address] [address] [place] [address] Phone Care Team Providers Care Clinical Research Scientist Name Role Phone Erlinda Ayon MD Unavaila ble Advance Directives Directive Yes / No Effective Date File Name No Information Encounters Encounter Description Practice Location Reason(s) For Visit Diagnoses Date Provider Providers Copied on Encounter [facility], [address] [address], [place], [place], [id number], [place] tel:[phone] [facility] No Information Gabo Kim [address] [facility], [place] [address], [place], [place], [id number] , [place]. tel:[phone] Referring Provider: [place], [address] [place], [address]. tel:[phone] Family History Family Member Type Diagnosis Age At Onset No Information Payers Payer name Insurance type Covered constitution party ID Authoriza tion(s) No Information Social [...]
--- OUTSIDE RECORDS SUMMARY | 2023-10-14 19:07 | XMS_ITS | Continuity of Care Document ---
Author Name Unknown Organization Z [facility] Address [address] [place] [address] Phone Care Team Providers Care Quality Assurance Supervisor Body Name Role Phone Unavailable Unavailable Unavailable Advance Directives Directive Yes / No Effective Date File Name No Information Encounters Encounter Description Practice Location Reason(s) For Visit Diagnoses Date Provider Providers Copied on Encounter Z [facility], [address], [place], [address], [place] tel:[phone] [facility] No Information No Information Family History Family Member Type Diagnosis Age At Onset No Information Payers Payer name Insurance type Covered democrat ID Authoriza tion(s) No Information Social History [...]
--- OUTSIDE RECORDS SUMMARY | 2023-10-14 19:07 | XMS_ITS | Continuity of Care Document ---
Author Name Unknown Organization [facility] Address [address] [place] [address] Phone Care Team Providers Care Community Representative Name Role Phone Maya Adrian MD Unavailable Unavailable Allergies, Adverse Reactions, Alerts Substance [...] route every day 1 Tablet - Active nicotine 21 mg/24 hr daily transdermal patch apply 1 patch by transdermal route every day and remove at bedtime 21 MG - Active Ambien 10 mg tablet take 1 tablet by oral route every day at bedtime 10 MG - Active LEFLUNOMIDE 20 MG TABLET [...] [address], [place], [address], [place] tel:[phone] [facility] , No Information 3 Skemp Maya. [facility] [address], [place], [place], [address], [place]. tel:[phone] [facility] , [address], [place], [address], [place] tel:[phone] [facility] No Information 3 Skemp Maya. [facility] [address], [place], [address], [place]. tel:[phone] [facility] , [address], [place], [address], [place] tel:[phone] [facility] , No Information 3 Skemp Maya. [facility] [address], [place], [address], [place]. tel:[phone] Referring Provider: Maya Geiger, [facility] [address], [place], [address]. tel:[phone] [facility] , [address], [place], [address], [place] tel:[phone] [facility] [place] No Information 3 Skemp Maya. [facility] [address], [place], [address], [place]. tel:[phone] Office/Outpa tient Visit, Est [facility] , [address], [place], [address], [place] tel:[phone] [facility] , Palindromic rheumatism, unspecified siteHidraden itis suppurativaO ther senior care (current) drug therapyTrigg er fingerPrimar y osteoarthrit is, unspecified hand 3 Skemp Maya. [facility] [address], [place], [address], [place]. tel:[phone] Referring Provider: Maya Adrian A, [facility] [address], [place], [address]. tel:[phone] [facility] , [address], [place], [address], [place] tel:[phone] [facility] , No Information 2 Skemp Maya. [facility] [address], [place], [address], [place]. tel:[phone] Referring Provider: Maya Adrian A, [facility] [address], [place], [address]. tel:[phone] Office/Outpa tient Visit, Est [facility] , [address], [place], [address], [place] tel:[phone] [facility] , Palindromic rheumatismOt her long goods drier (current) drug therapyPrima ry osteoarthrit is, unspecified hand 2 Skemp Maya. [facility] [address], [place], [address], [place]. tel:[phone] Referring Provider: Maya Geiger, [facility] [address], [place], [address]. tel:[phone] [facility] , [address], [place], [address], [place] tel:[phone] [facility] , No Information 2 Skemp Maya. [facility] [address], [place], [address], [place]. tel:[phone] Referring Provider: Maya Adrian A, [facility] [address], [place], [address]. tel:[phone] Office/Outpa tient Visit, Est [facility] , [address], [place], [address], [place] tel:[phone] [facility] , Rheumatoid arthritis without rheumatoid factor, multiple sitesOther long goods drier (current) drug therapyPrima ry osteoarthrit is, unspecified handOther spondylosis, cervical region 2 Skemp Maya. [facility] [address], [place], [address], [place]. tel:[phone] Referring Provider: Maya Geiger, [facility] [address], [place], [address]. tel:[phone] Office/Outpa tient Visit, Est [facility] , [address], [place], [address], [place] tel:[phone] [facility] , Inflammatory Polyarthropa thy (chief complaint)Mo nitor Chronic High Risk Meds (chief complaint)Os teoarthritis (chief complaint) Rheumatoid arthritis without rheumatoid factor, multiple sitesOther long goods drier (current) drug therapyPrima ry osteoarthrit is, unspecified handOther spondylosis, cervical regionTingli ng skin 1 Skemp Maya. [facility] [address], [place], [address], [place]. tel:[phone] Referring Provider: Maya Geiger [facility] [address], [place], [address]. tel:[phone] Office/Outpa tient Visit, Est [facility] , [address], [place], [address], [place] tel:[phone] [facility] , Rheumatoid arthritis without rheumatoid factor, multiple sitesOther long goods drier (current) drug therapyPrima ry osteoarthrit is, unspecified hand 1 Skemp Maya. [facility] [address], [place], [address], [place]. tel:[phone] Referring Provider: Maya Geiger, [facility] [address], [place], [address]. tel:[phone] Office/Outpa tient Visit, Est [facility] , [address], [place], [address], [place] tel:[phone] [facility] , Rheumatoid arthritis without rheumatoid factor, multiple sitesOther long goods drier (current) drug therapyHidra denitis suppurativaP rimary osteoarthrit is, unspecified handOther specified counseling Dec- 1 Skemp Maya. [facility] [address], [place], [address], [place]. tel:[phone] Referring Provider: Maya Geiger, [facility] [address], [place], [address]. tel:[phone] Office/Outpa tient Visit, Est [facility] , [address], [place], [address], [place] tel:[phone] [facility] , Rheumatoid arthritis without rheumatoid factor, multiple sitesOther long goods drier (current) drug therapyHidra denitis suppurativaP leural effusion in other conditions classified elsewherePri darwin osteoarthrit is, unspecified handOther dorsalgia 0 Skemp Maya. [facility] [address], [place], [address], [place]. tel:[phone] Referring Provider: Maya Geiger, [facility] [address], [place], [address]. tel:[phone] Office/Outpa tient Visit, Est [facility] , [address], [place], [address], [place] tel:[phone] [facility] , Inflammatory Polyarthropa thy (chief complaint)Mo nitor Chronic High Risk Meds (chief complaint) Rheumatoid arthritis w/o rheumatoid factor, multiple sitesOther long goods drier (current) drug therapyPrima ry osteoarthrit is, unspecified hand Sep- 0 Skemp Maya. [facility] [address], [place], [address], [place]. tel:[phone] Referring Provider: Maya Geiger, [facility] [address], [place], [address]. tel:[phone] Office/Outpa tient Visit, Est [facility] , [address], [place], [address], [place] tel:[phone] [facility] , Inflammatory Polyarthropa thy (chief complaint)Mo nitor Chronic High Risk Meds (chief complaint) Rheumatoid arthritis w/o rheumatoid factor, multiple sitesOther long goods drier (current) drug therapy 0 Skemp Maya. [facility] [address], [place], [address], [place]. tel:[phone] Referring Provider: Maya Geiger, [facility] [address], [place], [address]. tel:[phone] Office/Outpa tient Visit, Est [facility] , [address], [place], [address], [place] tel:[phone] [facility] , Osteoarthrit is (chief complaint)In flammatory Polyarthropa thy (chief complaint)Mo nitor Chronic High Risk Meds (chief complaint) Rheumatoid arthritis w/o rheumatoid factor, multiple sitesOther senior care (current) drug therapyPrima ry osteoarthrit is, unspecified handHidraden itis suppurativa Dec-3 Skemp Maya. [facility] [address], [place], [address], [place]. tel:[phone] Referring Provider: Maya Geiger, [facility] [address], [place], [address]. tel:[phone] Office/Outpa tient Visit, Est [facility] , [address], [place], [address], [place] tel:[phone] [facility] , Inflammatory Polyarthropa thy (chief complaint)Os teoarthritis (chief complaint)Mo nitor Chronic High Risk Meds (chief complaint) Rheumatoid arthritis w/o rheumatoid factor, multiple sitesOther senior care (current) drug therapyHidra denitis suppurativaP rimary osteoarthrit is, unspecified hand Sep-3 9 Skemp Maya. [facility] [address], [place], [address], [place]. tel:[phone] Referring Provider: Maya Geiger, [facility] [address], [place], [address]. tel:[phone] Office/Outpa tient Visit, Est [facility] , [address], [place], [address], [place] tel:[phone] [facility] , Rheumatoid arthritis w/o rheumatoid factor, multiple sitesOther long goods drier (current) drug therapy 9 Skemp Maya. [facility] [address], [place], [address], [place]. tel:[phone] Referring Provider: Maya Geiger, [facility] [address], [place], [address]. tel:[phone] Office/Outpa tient Visit, Est [facility] , [address], [place], [address], [place] tel:[phone] [facility] , Rheumatoid arthritis w/o rheumatoid factor, multiple sitesOther senior care (current) drug therapyPrima ry osteoarthrit is, unspecified handCough Skemp Maya. [facility] [address], [place], [address], [place]. tel:[phone] Referring Provider: Maya Geiger, [facility] [address], [place], [address]. tel:[phone] Office/Outpa tient Visit, Est [facility] , [address], [place], [address], [place] tel:[phone] [facility] , Osteoarthrit is (chief complaint)Rh eumatoid arthritis (chief complaint)Mo nitor Chronic High Risk Meds (chief complaint) Rheumatoid arthritis w/o rheumatoid factor, multiple sitesHidrade nitis suppurativaP rimary osteoarthrit is, unspecified handOther senior care (current) drug therapy 8 Skemp Maya. [facility] [address], [place], [address], [place]. tel:[phone] Referring Provider: Maya Geiger, [facility] [address], [place], [address]. tel:[phone] Office/Outpa tient Visit, Est [facility] , [address], [place], [address], [place] tel:[phone] [facility] , Rheumatoid arthritis without rheumatoid factor, multiple sitesOther long goods drier (current) drug therapyHidra denitis suppurativa 8 Skemp Maya. [facility] [address], [place], [address], [place]. tel:[phone] Referring Provider: Maya Geiger, [facility] [address], [place], [address]. tel:[phone] Office/Outpa tient Visit, Est [facility] , [address], [place], [address], [place] tel:[phone] [facility] , Rheumatoid arthritis (chief complaint)Mo nitor Chronic High Risk Meds (chief complaint) Primary osteoarthrit is, unspecified handRheumato id arthritis without rheumatoid factor, multiple sitesOther senior care (current) drug therapyHidra denitis suppurativaP leural effusion in other conditions classified elsewhere Skemp Maya. [facility] [address], [place], [address], [place]. tel:[phone] Referring Provider: Maya Geiger [facility] [address], [place], [address]. tel:[phone] Office/Outpa tient Visit, Est [facility] , [address], [place], [address], [place] tel:[phone] [facility] , Rheumatoid arthritis (chief complaint)Os teoarthritis (chief complaint)Mo nitor Chronic High Risk Meds (chief complaint) Rheumatoid arthritis without rheumatoid factor, multiple sitesOther long goods drier (current) drug therapyPrima ry osteoarthrit is, unspecified handHidraden itis suppurativa Skemp Maya. [facility] [address], [place], [address], [place]. tel:[phone] Referring Provider: Maya Geiger, [facility] [address], [place], [address]. tel:[phone] Office/Outpa tient Visit, Est [facility] , [address], [place], [address], [place] tel:[phone] [facility] , Rheumatoid arthritis (chief complaint)Os teoarthritis (chief complaint)Mo nitor Chronic High Risk Meds (chief complaint) Rheumatoid arthritis without rheumatoid factor, multiple sitesOther senior care (current) drug therapyHidra denitis suppurativaP leural effusion in other conditions classified elsewhere Skemp Maya. [facility] [address], [place], [address], [place]. tel:[phone] Referring Provider: Maya Geiger, [facility] [address], [place], [address]. tel:[phone] Office/Outpa tient Visit, Est [facility] , [address], [place], [address], [place] tel:[phone] [facility] , Rheumatoid arthritis (chief complaint)Mo nitor Chronic High Risk Meds (chief complaint) Rheumatoid arthritis without rheumatoid factor, multiple sitesOther senior care (current) drug therapyHidra denitis suppurativaP leural effusion in other conditions classified elsewhereEle vated white blood cell count, unspecified Skemp Maya. [facility] [address], [place], [address], [place]. tel:[phone] Referring Provider: Maya Geiger, [facility] [address], [place], [address]. tel:[phone] Office/Outpa tient Visit, Est [facility] , [address], [place], [address], [place] tel:[phone] [facility] , Rheumatoid arthritis (chief complaint)Mo nitor Chronic High Risk Meds (chief complaint) Primary osteoarthrit is, unspecified handRheumato id arthritis without rheumatoid factor, multiple sitesOther long goods drier (current) drug therapyHidra denitis suppurativaO ther specified counseling Skemp [facility] [address], [place], [address], [place]. tel:[phone] Referring Provider: Maya Geiger, [facility] [address], [place], [address]. tel:[phone] Office/Outpa tient Visit, Est [facility] , [address], [place], [address], [place] tel:[phone] [facility] , Rheumatoid arthritis (chief complaint) Rheumatoid arthritis without rheumatoid factor, multiple sitesOther senior care (current) drug therapyPrima ry osteoarthrit is, unspecified handHidraden itis suppurativaO ther specified counseling Skemp [facility] [address], [place], [address], [place]. tel:[phone] Referring Provider: Maya Skemp A, [facility] [address], [place], [address]. tel:[phone] [facility] , [address], [place], [address], [place] tel:[phone] [facility] , [facility] [address], [place], [address], [place]. tel:[phone] Referring Provider: Maya Geiger, [facility] [address], [place], [address]. tel:[phone] Office/Outpa tient Visit, Est [facility] , [address], [place], [address], [place] tel:[phone] [facility] , Rheumatoid arthritis (chief complaint)Mo nitor Chronic High Risk Meds (chief complaint) Rheumatoid arthritis without rheumatoid factor, multiple sitesPrimary osteoarthrit is, unspecified handHidraden itis suppurativaO ther long goods drier (current) drug therapyOther specified counseling [facility] [address], [place], [address], [place]. tel:[phone] Referring Provider: Maya Geiger, [facility] [address], [place], [address]. tel:[phone] Office/Outpa tient Visit, Est [facility] , [address], [place], [address], [place] tel:[phone] [facility] , Rheumatoid arthritis (chief complaint)Os teoarthritis (chief complaint)Mo nitor Chronic High Risk Meds (chief complaint) Rheumatoid ArthritisOst eoarthrosis, localized, primary, involving handTherapeu tic Drug Monitoring 5 Skemp Maya. [facility] [address], [place], [address], [place]. tel:[phone] Referring Provider: Maya Geiger, [facility] [address], [place], [address]. tel:[phone] Office/Outpa tient Visit, Est [facility] , [address], [place], [address], [place] tel:[phone] [facility] , Rheumatoid Arthritis (chief complaint)Mo nitor chronic high risk medications (chief complaint) Pleural EffusionOste oarthrosis, localized, primary, involving handTherapeu tic Drug MonitoringRh eumatoid Arthritis 4 Skemp Maya. [facility] [address], [place], [address], [place]. tel:[phone] Referring Provider: Maya Gegier, [facility] [address], [place], [address]. tel:[phone] Office/Outpa tient Visit, Est [facility] , [address], [place], [address], [place] tel:[phone] [facility] , pleural effusions (chief complaint)in flammatory arthritis (chief complaint) Osteoarthros is, localized, primary, involving handUnspecif ied inflammatory polyarthropa thyTherapeut ic Drug MonitoringPl eural Effusion 4 Skemp Maya. [facility] [address], [place], [address], [place]. tel:[phone] Referring Provider: Maya Geiger, [facility] [address], [place], [address]. tel:[phone] Office/Outpa tient Visit, Est [facility] , [address], [place], [address], [place] tel:[phone] [facility] , pleural effusions (chief complaint)in flammatory arthritis (chief complaint) Pleural EffusionUnsp ecified inflammatory polyarthropa thyOsteoarth rosis, localized, primary, involving handTherapeu tic Drug Monitoring Skemp Maya. [facility] [address], [place], [address], [place]. tel:[phone] Referring Provider: Maya Geiger, [facility] [address], [place], [address]. tel:[phone] Office/Outpa tient Visit, New [facility] , [address], [place], [address], [place] tel:[phone] [facility] , pleural effusions (chief complaint)fe alexia (chief complaint)ar thritis (chief complaint) Pain in joint involving handOsteoart hrosis, localized, primary, involving handUnspecif ied inflammatory polyarthropa thyPleural Effusion 4 Skemp Maya. [facility] [address], [place], [address], [place]. tel:[phone] Referring Provider: Maya Geiger, [facility] [address], [place], [address]. tel:[phone] [facility] , [address], [place], [address], [place] tel:[phone] [facility] , No Information 201 4 Skemp Maya. [facility] [address], [place], [address], [place]. tel:[phone] Family History Family Member Type Diagnosis Age At Onset No Information Immunizations Vaccine Date Status Comments COVID-19 [employer] administered S ource: Other Provider Payers Payer name Insurance type Covered democrat ID Yoselin quijano(s) [facility] [id number] Social History Type Description Quantity Date Captured [...]
--- OUTSIDE RECORDS SUMMARY | 2023-10-14 19:07 | XMS_ITS | Continuity of Care Document ---
Author Name Unknown Organization [facility] Address [address] [place] [address] Phone Care Team Providers Care Printing Film Stripper Name Role Phone Unavailable Unavailable Unavailable Advance Directives Directive Yes / No Effective Date File Name No Information Encounters Encounter Description Practice Location Reason(s) For Visit Diagnoses Date Provider Providers Copied on Encounter Z [facility], [address], [place], [address], [place] tel:[phone] [facility] No Information No Information Family History Family Member Type Diagnosis Age At Onset No Information Payers Payer name Insurance type Covered alliance party ID Authoriza tion(s) No Information Social [...]
[2023-10-14] MEDS: LACTATED RINGERS 1000 ML 1,000 ML IV (19:21)
[2023-10-14] MEDS: MORPHINE 4 MG/ML INJ IVP (19:22)
[2023-10-14] MEDS: ONDANSETRON 2 MG/ML inj 4 MG IVP (19:22)
[2023-10-14 19:25] LABS: Lactate* 1.2 mmol/L (0.5-1.9)
[2023-10-14 19:26] LABS: Basophils Percent Auto 0.1 % (0.0-3.0); Eosinophils Percent Auto 0.4 % (0.0-7.0); Hematocrit 43.5 % (33.0-51.0); Hemoglobin* 14.1 gm/dL (12.0-16.0); Immature Granulocytes Pct Auto 0.2 %; Lymphocytes Percent Auto 13.7 % (20-44); Mean Corpuscular HGB Conc 32 gm/dL (32-36); Mean Corpuscular Hemoglobin 31 pg (26-34); Mean Corpuscular Volume 95 fL (80-100); Monocytes Percent Auto 8.5 % (0.0-11.0); Neutrophils Percent Auto 77.1 % (42.0-72.0); Platelet Count* 373 K/uL (140-440); RDW Coefficient of Variation % 12.2 % (11.5-15.5); Red Blood Count 4.58 m/uL (4.00-5.20); White Blood Count* 17.04 K/uL (4.50-11.00)
--- NOTE | 2023-10-14 19:27 | PC.NURSE ---
Pt to radiiology
[2023-10-14 19:33] LABS: Appearance Urine Clear (Clear); Bilirubin Urine Negative (Negative); Blood Urine Negative (Negative); Color Urine Yellow (Yellow); Glucose Urine Negative (Negative); Ketones Urine Negative (Negative); Leukocyte Esterase Urine Negative (Negative); Nitrite Urine Negative (Negative); Protein Urine Negative (Negative); Urobilinogen Urine 0.2 (0.2-1.0)
[2023-10-14 19:34] LABS: RBC Urine 0-2 (0-2); WBC Urine 0-2 (0-5)
[2023-10-14 19:37] LABS: Slide Review Reflex No
[2023-10-14 19:43] LABS: Albumin* 4.9 g/dL (3.3-5.0); Chloride* 103 mmol/L (96-114); Potassium* 3.9 mmol/L (3.6-5.1); Sodium* 136 mmol/L (135-149)
[2023-10-14 19:45] LABS: Anion Gap 7 mEq/L (7-15); Aspartate Amino Transferase* 31 U/L (12-35); Bilirubin Total* 0.5 mg/dL (0.1-1.5); Carbon Dioxide* 26 mmol/L (20-32); Creatinine* 0.8 mg/dL (0.5-1.5); Est. Creatinine Clearance* 61.86; Estimated Glomerular Filt Rate 84 ml/min; Total Protein* 8.4 g/dL (6.0-8.3)
[2023-10-14 19:46] LABS: Alanine Aminotransferase* 33 U/L (4-35); Alkaline Phosphatase* 108 U/L (40-150); Blood Urea Nitrogen* 12 mg/dL (7-30); Calcium* 9.3 mg/dL (8.4-10.6); Glucose* 117 mg/dL (60-115); Lipase* 102 U/L (23-300)
[2023-10-14 20:06] LABS: PCR FLU A Negative PCR FLU A (Negative); PCR FLU B Negative PCR FLU B (Negative)
--- NOTE | 2023-10-14 20:06 | PC.NURSE ---
daniela pt; Laying on left sdie texting with light dowb and not further requests. Call light at BS
[2023-10-14 20:07] LABS: SARS PCR* Negative SARS-CoV-2 (Negative)
--- NOTE | 2023-10-14 20:39 | PC.NURSE ---
Pt ambulate to BR to attempt stool sample-unsuccessful
== END 2023-10-14 21:55 | disposition home or self-care (01) ==
PROVIDERS: Emergency Provider Student in an Organized Health Care Education/Training Program; PCP Physician Assistant Medical
DX: K52.9 Noninfective gastroenteritis and colitis, unspecified (principal)
CPT/HCPCS: 36415; 74177; 80053; 81001; 82565; 83605; 83690; 85025; 87493; 87631; 95992; 96374; 96375; 99283; 99284; 99285; J2270; J2405; J7120; Q9967

== ENCOUNTER 2024-05-11 11:01 | Outpatient (CLI) | payer OTHER, SELFPAY ==
--- OUTSIDE RECORDS SUMMARY | 2024-05-12 02:08 | XMS_ITS | Clinical Summary ---
Author Organization [facility] Address [place], [place] [address] Care Team Providers Care Coding Auditor Name Role Phone Kevin Knight MD Primary Care Provider Allergies No known active allergies Medications Medication Sig Dispensed Refills Start Date End Date Status zolpidem (AMBIEN) 10 mg tablet Take 1 tablet by mouth at bedtime if needed for Sleep. 0 08/31/2012 Active nicotine 21 mg/24 hr (NICODERM; HABITROL) 21 mg/24 hr patch Apply 1 Patch on dry, clean, hairless skin once daily if needed for Nicotine Craving. 21 Patch 02/19/2014 Active methotrexate (RHEUMATREX) 2.5 mg tablet Take 6 tablets by mouth once weekly. 0 08/30/2015 Active hydroxychloroqui ne (PLAQUENIL) 200 mg tablet Take 1 tablet by mouth once daily. 0 08/30/2015 Active gabapentin (NEURONTIN) 300 mg capsule Take 900 mg by mouth 3 times daily. 0 08/30/2015 Active cyclobenzaprine (FLEXERIL) 10 mg tabletIndication s:Post-op pain Take 1 tablet by mouth 3 times daily if needed for Muscle Spasm. 40 tablet 09/03/2015 Active sennosides-docus ate, 8.6-50 mg, (SENOKOT S) 8.6-50 mg tabletIndication s:Prophylactic measure Take 1-4 tablets by mouth 2 times daily if needed for constipation. 30 tablet 09/03/2015 Active METHOCARBAMOL ORAL Take by mouth every 8 hours if needed. Active oxyCODONE (OXYCONTIN) 10 mg Sustained-Releas e tablet Take 10 mg by mouth every 12 hours. Active oxyCODONE (ROXICODONE) 5 mg immediate release tablet Take 5-10 mg by mouth every 4 hours if needed for Pain. Active DULoxetine (CYMBALTA) 60 mg Delayed-release capsule Take 60 mg by mouth once daily. Active acetaminophen (TYLENOL) 325 mg tabletIndication s:Post-operative pain Take 2 tablets by mouth every 4 hours if needed for Headache, Pain or Temp>101.5F (38.6C) (For mild pain.). Max acetaminophen dose: 4000mg in 24 hrs. 20 tablet 09/21/2015 Active hydrOXYzine pamoate (VISTARIL) 25 mg capsuleIndicatio ns:Post-operativ e pain Take 1 capsule by mouth every 6 hours if needed for Itching, Anxiety or pain. 20 capsule 09/21/2015 Active nicotine (NICOTROL) 10 mg inhalerIndicatio ns:Tobacco use disorder Inhale 10 mg by mouth every hour if needed for Nicotine Craving. 10 cartridge 09/21/2015 Active lidocaine 5% (LIDODERM) 5 %(700 mg/patch) patchIndications :Neck pain Apply 1 patch topically to skin once daily (On for 12 hours off for 12 hours). 30 Patch 09/21/2015 Active KETAMINE HCL (KETAMINE 8%-GABAPENTIN 6%-LIDOCAINE 2.5%) gelIndications:P ost-operative pain Apply 0.3-1 mL topically to affected area(s) 4 times daily. Apply to affected area four times daily. 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 VATS 04/08/2014 Leukocytosis 04/08/2014 Anemia 04/08/2014 Hyponatremia 04/08/2014 Hypocalcemia 04/08/2014 ACP (advance care planning) 04/08/2014 Overview: Full Code Laila Castillo (daughter) [phone] Chilo Cabezastipmartine (son) [phone] Fever 02/15/2014 Insomnia, unspecified 12/27/2012 Tobacco use disorder 12/27/2012 Resolved Problems Problem Noted Date Diagnosed Date Resolved Date Empyema 02/15/2014 04/08/2014 Immunizations Name Administration Dates Next Due Influenza, IIV3 (Age >=3 years) 08/31/2012 Influenza, IIV4 08/29/2015 Tdap 03/01/2011 Family History Medical History Relation Name Comments Heart Disease Father GA Cancer Maternal Grandfather stomach Relation Name Status Comments Father Maternal Grandfather Social History Tobacco Use Types Packs/Day Years Used Date Smoking Tobacco: Every Day Cigarettes 0.5 30 Smokeless Tobacco: Never Tobacco Cessation:Ready to Q uit: Yes; Counseling Given: No Alcohol Use Standard Drinks/Week Comments Yes 0 (1 standard drink = 0.6 oz pur e alcohol) avg. 10 monthly Sex and Gender Information Value Date Recorded Sex Assigned at Not on file Gender Identity Not on file Sexual Orientation Not on file Obstetrics History Last Filed Vital Signs Vital Sign Reading Time Taken Comments Blood Pressure 118/77 09/21/2015 1:15 PM FOLLOW UP SPECIALIST Pulse 98 09/21/2015 1:15 PM FOLLOW UP SPECIALIST Temperature 36.7 ??C (98 ??F) 09/21/2015 1:15 PM FOLLOW UP SPECIALIST Respiratory Rate 16 09/21/2015 1:15 PM FOLLOW UP SPECIALIST Oxygen Saturation 94% 09/21/2015 5:50 AM FOLLOW UP SPECIALIST Inhaled Oxygen Concentration - - Weight 79.4 kg (175 lb) 09/20/2015 11:07 PM FOLLOW UP SPECIALIST Height 162.6 cm (5' 4.02) 09/20/2015 11:[address] Body Mass Index 30.02 09/20/2015 11:07 PM FOLLOW UP SPECIALIST Plan of Treatment Health Maintenance Due Date Last Done Comments Depression screening for age 12+ 1975 HIV for age 15-65 1978 BMI (ht and wt on same day) for age 18+ 1981 Hepatitis C screening for age 18-79 1981 Colonoscopy through age 75 2008 Zoster (shingles) series for age 50+ (1 of 2) 2013 Mammogram for age 45-75 01/30/2014 01/31/20 13, 03/30/2012 (Completed outside of [facility]) Lipids for age 45-75 11/14/2018 11/14/2013, 09/30/2011 (Completed outside of [facility]) Tetanus booster 03/01/2021 03/01/2011 Pap test for age 21-65 02/10/2022 9, 02/10/2019, 11/14/2013, Additional history exists COVID-19 vaccine series (2022-24 season) 2023 Influenza for age 50-64 07/02/2024 08/29/2015, 08/31 Tdap Completed 03/01/2011 Pneumococcal series for age 6-64 Aged Out No longer eligible based on patient's age to complete this topic Procedures Procedure Name Priority Date/Time Associated Diagnosis Comments FACTORY MAINTENANCE TECHNICIAN THIN PREP PAP SCREEN IMAGED Routine 02/10/2019 3:45 PM CDT LIPID PANEL Routine 11/14/2013 12:02 PM FOLLOW UP SPECIALIST Routine general medical examination at a [facility] care facility from Last 3 Months or Most Recently Relevant to Health Maintenance Results * FACTORY MAINTENANCE TECHNICIAN THIN PREP PAP SCREEN IMAGED (02/10/2019 3:45 PM CDT) Case Report Gynecologic Cytology Report ? Case: [id number] ? Authorizing Provider: ??Veena Lopez PA-C ?Collected: ? 02/10/2019 1545 ? Ordering Location: ? [facility] ?Received: ?02/14/2019 1656 ? First Screen: ?Eulalia Celis ? Specimen: ?FACTORY MAINTENANCE TECHNICIAN ThinPrep Vial Screening, Cervical/Vaginal ? 02/23/2019 2:02 PM CDT [facility] INTERPRETATION/ RESULT NEGATIVE FOR INTRAEPITHELIAL LESION OR MALIGNANCY (NIL) (none) 02/23/2019 2:02 PM CDT [facility] IMEN ADEQUACY Satisfactory for evaluation Endocervical component present 02/23/2019 2:02 PM CDT [facility] HPV REQUEST HPV and PAP 02/23/2019 2:02 PM CDT [facility] Date of LMP 02/23/2019 2:02 PM CDT [facility] Comment:menopausal Last Pap Date 04/15/2014 02/23/2019 2:02 PM CDT [facility] Last Pap Result 9 2:02 PM CDT [facility] Comment:unknown Automated Review Successful 02/23/2019 2:02 PM CDT [facility] Comment:Specimen processed s uccessfully by automated environmental health officer device, ThinPrep Imaging System, [employer] ANCILLARY TESTING FACTORY MAINTENANCE TECHNICIAN HPV Ordered, Please see separate report 02/23/2019 2:02 PM CDT [facility] Note The pap test is a screening technique, not a diagnostic procedure. ??It is used primarily to screen for squamous cancers and precursor lesions. ??Published studies have shown that it is subject to both false negative and false positive results. ??The pap test should not be used as the sole means to diagnose or exclude pre-malignant and malignant lesions. Cytology is screened and interpreted at [facility] - [address], [place] [address] and [facility] - [address] [place] [address]; [place] [address] and [facility] - [address]; [place] [address] and [facility] [address]; [place] [address] 02/23/2019 2:[address] [facility] Other (Cervical/Vagina l) 02/10/2019 3:45 PM CDT 02/14/2019 4:56 PM CDT Veena Lopez PA-C PATHOLOGY/CYTOLOGY [facility] [address] [place] [address], * (ABNORMAL) LIPID PANEL (11/14/2013 12:02 PM FOLLOW UP SPECIALIST) CHOLESTEROL,TOTA L 164 100 - 199 mg/dL TRIGLYCERIDES 127 <150 mg/dL [facility] HDL CHOLESTEROL 32(L) >40 mg/dL [facility] CHOL/HDL RATIO 5.13(H) <4.50 [facility] NON-HDL CHOLESTEROL 132 Undefined mg/dL LDL CHOLESTEROL 107 <131 mg/dL [facility] PATIENT STATUS Fasting [facility] Blood specimen (specimen) BLOOD SPECIMEN / Unknown 11/14/2013 12:02 PM FOLLOW UP SPECIALIST 11/14/2013 11:57 AM FOLLOW UP SPECIALIST Arnaldo Brumfield MD CHEMISTRY LABORATORY [place]NAL ZIP [id number] [place] [address] from Last 3 Months or Most Recently Relevant to Health Maintenance Advance Directives * Full Code (Latest Code Status on File) Date Activated Date Inactivated Comments 09/21/2015 5:45 AM 09/21/2015 7:47 PM * Full Code Date Activated Date Inactivated Comments 09/02/2015 9:36 AM 09/03/2015 7:42 PM * Full Code Date Activated Date Inactivated Comments 09/02/2015 6:13 AM 09/02/2015 9:36 AM * Full Code Date Activated Date Inactivated Comments 04/08/2014 7:57 PM 04/11/2014 2:58 PM * Full Code Date Activated Date Inactivated Comments 02/15/2014 1:36 AM 02/19/2014 5:17 PM Care Teams Coding Auditor Relationship Specialty Start Date End Date Kevin Knight MD PCP - General Family Practice 08/29/15
--- OUTSIDE RECORDS SUMMARY | 2024-05-12 02:08 | XMS_ITS | Clinical Summary ---
Author Organization [facility] Address [address] [place] [address] Care Team Providers Care Rattle Leak And Squeak Repairer Name Role Phone Unavailable Primary Care Provider Unavailabl e Source Comments PLEASE NOTE, if this patient is a minor, it may be UNLAWFUL to discuss sensitive information that is contained in these records (such as FAMILY PLANNING, MENTAL HEALTH or SUBSTANCE ABUSE) with the minor patient's parent or other person without the patient's specific authorization.[facility] Social History Tobacco Use Types Packs/Day Years Used Date Smoking Tobacco: Never Assessed Sex and Gender Information Value Date Recorded Sex Assigned at Female 12/30/2020 1:51 PM PST Gender Identity Female 12/30/2020 1:51 PM PST Sexual Orientation Not on file Plan of Treatment Not on file
== END 2024-05-11 11:02 | disposition home or self-care (01) ==
LOC: NFLDREF 05-12 02:06
PROVIDERS: PCP Physician Assistant Medical; Referring Provider Physician Assistant Medical; Visit Provider Physician Assistant Medical
DX: R30.0 Dysuria (principal); R35.0 Frequency of micturition
CPT/HCPCS: 87086; 87186

== ENCOUNTER 2024-06-12 19:22 | Emergency (ER) | payer OTHER, SELFPAY ==
[2024-06-12 19:28] VITALS: BP 125/81; PULSE 82; RESP 18; TEMP 36.1; O2SAT 96; BMI 25.7
--- NOTE | 2024-06-12 19:58 | CRLHL7_ITS ---
For Patients: As a result of the Century Cures Act, medical imaging exams and procedure reports are released immediately into your electronic medical record. You may view this report before your referring provider. If you have questions, please contact your health care provider. Indication: Trauma. Technique: Left tibia/fibula, 2 views. Comparison: None. Findings/Impression: Bones: Alignment is normal. No displaced fractures or bone lesions. Joint spaces: Unremarkable. Soft tissues: Focal edema/subcutaneous emphysema along the anterior amado. No radiopaque foreign body. Dictated by Alejandro Milan MD @ 06/12/2024 8:38:53 PM (Electronically Signed)
--- NOTE | 2024-06-12 20:22 | ED_ITS ---
HPI - General Adult General Chief complaint: Extremity Pain/Injury, Lower Stated complaint: left leg injury, fall from ladder Time Seen by Provider: 06/12/24 19:34 Source: patient Mode of arrival: ambulatory Limitations: no limitations History of Present Illness HPI narrative: 4-year-old female coming in today with a laceration to her lower leg. Patient states that she was on a ladder about 2 ft off the ground, when she slipped and fell, coming down with her anterior lower left leg on the edge of the steel ladder. Did not her head or lose consciousness. Denies any other injury. Was complaining of left lower leg pain. Is able to ambulate. Last tetanus shot was in 2010. Related Data Home Medications ?Medication ?Instructions ?Recorded ?Confirmed calcium carbonate 600 mg-vitamin 2 cap PO DAILY 07/15/22 06/06/24 D3 5 mcg (200 unit) capsule folic acid 1 mg tablet 1 mg PO QDAY 07/15/22 06/06/24 leflunomide 10 mg tablet 10 mg PO DAILY 07/15/22 06/06/24 Previous Rx's ?Medication ?Instructions ?Recorded albuterol sulfate 90 mcg/actuation 2 puff inhalation Q4-6H PRN 07/28/23 aerosol inhaler bronchospasm #8.5 grams zolpidem 10 mg tablet 10 mg PO QHS PRN insomnia #30 tabs 08/11/23 hydroxyzine pamoate 50 mg capsule 50 mg PO QPM #90 caps 11/03/23 nirmatrelvir 300 mg (150 mg See Rx Instructions PO .COMPLEX 11/12/23 x2)-ritonavir 100 mg tablet,dose #30 ea pack (Paxlovid) gabapentin 300 mg capsule 600 mg (2 x 300 mg) PO QHS #180 01/27/24 caps lorazepam 1 mg tablet 1 mg PO Q6-8H PRN Flight anxiety 01/27/24 #10 tabs solifenacin 10 mg tablet (Vesicare) 10 mg PO QDAY #90 tabs 04/17/24 bupropion HCl 150 mg tablet,12 hr 150 mg PO BID #180 tabs 05/15/24 sustained-release cephalexin 500 mg capsule 500 mg PO TID 7 days #21 caps 06/12/24 Allergies Allergy/AdvReac Type Severity Reaction Status Date / Time No Known Allergies Allergy Unknown Verified 06/12/24 19:27 Review of Systems Status of ROS: Reports: 6 or more systems reviewed and unremarkable except as noted in History and below [facility] Medical History Hx of Clostridium difficile infection ?Z86.19 - Personal history of other infectious and parasitic diseases (ICD- 10) History of colitis ?Z87.19 - Personal history of other diseases of the digestive system (ICD-10) Lung collapse ?J98.19 - Other pulmonary collapse (ICD-10) Left foot pain ?M79.672 - Pain in left foot (ICD-10) Postconcussion syndrome ?F07.81 - Postconcussional syndrome (ICD-10) Tobacco abuse ?Z72.0 - Tobacco use (ICD-10) Surgical History History of lumbar fusion ?Z98.1 - Arthrodesis status (ICD-10) History of laminectomy ?Z98.890 - Other specified postprocedural states (ICD-10) History of bunionectomy of both great toes ?Z98.890 - Other specified postprocedural states (ICD-10) Family History Father Coronary artery disease High blood pressure Other AAA (abdominal aortic aneurysm) Social History Narrative: does not use illicit drugs occasional alcohol consumption smoker Smoking Status: Former smoker Do you use any of these nicotine containing products: None Second hand tobacco smoke exposure: No How often do you have a drink containing alcohol: never How often do you have six or more drinks on one occasion: Never AUDIT-C Alcohol total score: 0 Little interest or pleasure in doing things: not at all Feeling down, depressed, or hopeless: not at all service: No Exam Narrative: Exam Narrative: Well-nourished well-developed patient in no acute distress. Alert and oriented. Answers questions appropriately. Mood and affect are appropriate. Thoughts are goal oriented and rational. No tangential or magical thinking noted. Patient speaks in full sentences without needing to catch her breath. GCS is 15. HEENT: Normocephalic atraumatic. Pupils are equally round reactive to light. Extraocular muscles are intact. Conjunctivae are moist without any icterus noted. Moist mucous membranes. Extremities: Patient has a v-shaped flap laceration just distal to the knee on the anterior lower leg. Laceration penetrates through the dermis into the subcutaneous tissue, no bone is visible. She has tenderness around the entire area. Const: Vital Signs, click to edit/add: Vital Signs - 24 hr 06/12/24 19:28 Temperature 97.0 F L Pulse Rate [Pulse Oximeter] 82 Respiratory Rate 18 Blood Pressure [Ri ght Upper Arm] 125/81 Pulse Oximetry 96 Oxygen Delivery Me thod Room Air Course Course ED Course: Local anesthesia provided with lidocaine. The wound was irrigated and explored. Two sutures with 3-0 Vicryl used to with the subcutaneous tissue back together and 13 sutures with 3-0 Ethilon used on the skin with great skin approximation and no complications. We also x-rayed the tip the given the amount of discomfort she was in, this was read by me, did not show any acute fractures. Tetanus shot updated today. Vital Signs Vital signs: Initial Vital Signs Temperature 97.0 F L 06/12/24 19:28 Temperature Source Temporal Artery Scan 06/12/24 19:28 Pulse Rate 82 06/12/24 19:28 Pulse Rhythm Regular 06/12/24 19:28 Respiratory Rate 18 06/12/24 19:28 Blood Pressure 125/81 06/12/24 19:28 Blood Pressure Mean 95 06/12/24 19:28 Blood Pressure Position Sitting 06/12/24 19:28 Pulse Oximetry 96 06/12/24 19:28 Oxygen Delivery Method Room Air 06/12/24 19:28 Vital Signs Temperature 97.0 F L 06/12/24 19:28 Pulse Rate 82 06/12/24 19:28 Respiratory Rate 18 06/12/24 19:28 Blood Pressure 125/81 06/12/24 19:28 Pulse Oximetry 96 06/12/24 19:28 Oxygen Delivery Method Room Air 06/12/24 19:28 Temperature 97.0 F L 06/12/24 19:28 Pulse Rate 82 06/12/24 19:28 Respiratory Rate 18 06/12/24 19:28 Blood Pressure 125/81 06/12/24 19:28 Pulse Oximetry 96 06/12/24 19:28 Oxygen Delivery Method Room Air 06/12/24 19:28 Medical Decision Making MDM Narrative Medical decision making narrative: 58-year-old female status post fall and laceration treated per above. Discharge Plan Discharge Clinical Impression: Laceration Patient Disposition: Home, Self-Care Condition: Improved Additional Instructions: Keep wound clean and dry. Do not soak such as taking baths, swimming or doing dishes. Follow-up in approximately 7-10 days for suture removal with your primary care provider. Watch for signs and symptoms of infection including increasing redness of the area, purulent drainage, or fever. If this occurs follow-up right away with your doctor or return to the ER. Take all antibiotics as prescribed. Prescriptions: New cephalexin 500 mg capsule 500 mg PO TID 7 Days Qty: 21 0RF No Action albuterol sulfate 90 mcg/actuation HFA aerosol inhaler 2 puff inhalation Q4-6H PRN (Reason: bronchospasm) Qty: 8.5 0RF leflunomide 10 mg tablet 10 mg PO DAILY folic acid 1 mg tablet 1 mg PO QDAY calcium carbonate-vitamin D3 600 mg-5 mcg (200 unit) capsule 2 cap PO DAILY zolpidem 10 mg tablet 10 mg PO QHS PRN (Reason: insomnia) Qty: 30 0RF hydroxyzine pamoate 50 mg capsule 50 mg PO QPM Qty: 90 1RF Paxlovid 300 mg (150 mg x 2)-100 mg tablets,dose pack See Rx Instructions PO .COMPLEX Qty: 30 0RF Rx Instructions: take TWO 150 mg tablets of nirmatrelvir with ONE 100 mg tablet of ritonavir twice daily for 5 days PO gabapentin 300 mg capsule 600 mg PO QHS Qty: 180 1RF Rx Instructions: once nightly for sleep lorazepam 1 mg tablet 1 mg PO Q6-8H PRN (Reason: Flight anxiety) Qty: 10 0RF solifenacin [Vesicare] 10 mg tablet 10 mg PO QDAY Qty: 90 0RF bupropion HCl 150 mg tablet sustained-release 12 hr 150 mg PO BID Qty: 180 0RF Follow Up/Referrals: Veena Lopez PA-C [Primary Care Provider] - Stand Alone [facility] Instructions
[2024-06-12] MEDS: TETANUS/DIPHTH/PERTUSSIS 0.5 ML SYRINGE IM (20:40)
== END 2024-06-12 20:43 | disposition home or self-care (01) ==
PROVIDERS: Emergency Provider Family Medicine; PCP Physician Assistant Medical
DX: S81.812A Laceration without foreign body, left lower leg, initial encounter (principal); W11.XXXA Fall on and from ladder, initial encounter; Z23 Encounter for immunization
CPT/HCPCS: 12001; 73590; 90471; 90715; 99284

== ENCOUNTER 2024-06-28 15:15 | Outpatient (RCR) | payer OTHER, SELFPAY | END 2024-10-26 23:59 | disposition home or self-care (01) | PROVIDERS: PCP Physician Assistant Medical; Visit Provider Orthopaedic Surgery | DX: M70.60 Trochanteric bursitis, unspecified hip (principal); M54.16 Radiculopathy, lumbar region; M25.551 Pain in right hip; M54.50 Low back pain, unspecified; Z51.89 Encounter for other specified aftercare | CPT/HCPCS: 97012; 97035; 97140; 97161 ==

== ENCOUNTER 2024-08-09 10:44 | Outpatient (CLI) | payer OTHER, SELFPAY ==
--- OUTSIDE RECORDS SUMMARY | 2024-08-09 10:47 | XMS_ITS | Continuity of Care Document ---
Author Organization [facility] Address [address] [place] [address] Phone Care Team Providers Care Furnace Loader Name Role Phone Maya Adrian MD Unavailable Unavailable Allergies, Adverse Reactions, Alerts Substance Reaction Status Criticality No Known Allergies Active No Inform ation Medications Medication Instructions Dosage Effective Dates (start - stop) Status Comments FOLIC ACID 1 MG TABLET TAKE 1 TABLET BY MOUTH EVERY DAY - Active LEFLUNOMIDE 20 MG TABLET TAKE 1 TABLET BY MOUTH EVERY OTHER DAY - Active Calcium 600 + D(3) [...] remove at bedtime 21 MG - Active FOLIC ACID 1 MG TABLET TAKE 1 TABLET BY MOUTH EVERY DAY - No Longer Active Procedures Procedure Date Office/Outpatient Visit, Est Routine Venipuncture Assay Of [...] Encounter [facility] , [address], [place], [address], [place] tel:[phone] [facility] No Information 4 Skemp Maya. [facility] [address], [place], [address], [place]. tel:[phone] Office/Outpa tient Visit, Est [facility] , [address], [place], [address], [place] tel:[phone] [facility] , Rheumatoid arthritis without rheumatoid factor, multiple sitesHidrade nitis suppurativaO ther snf (current) drug therapyOther specified counseling 4 Skemp Maya. [facility] [address], [place], [address], [place]. tel:[phone] Referring Provider: Maya Skemp A, [facility] [address], [place], [address]. tel:[phone] [facility] , [address], [place], [address], [place] tel:[phone] [facility] , No Information 3 Skemp Maya. [facility] [address], [place], [address], [place]. tel:[phone] [facility] , [address], [place], [address], [place] tel:[phone] [facility] , No Information 3 Skemp Maya. [facility] [address], [place], [address], [place]. tel:[phone] Referring Provider: Maya Skemp A, [facility] [address], [place], [address]. tel:[phone] [facility] , [address], [place], [address], [place] tel:[phone] [facility] [place] No Information 3 Skemp Maya. [facility] [address], [place], [address], [place]. tel:[phone] Office/Outpa tient Visit, Est [facility] , [address], [place], [address], [place] tel:[phone] [facility] , Palindromic rheumatism, unspecified siteHidraden itis suppurativaO ther termite helper (current) drug therapyTrigg er fingerPrimar y osteoarthrit is, unspecified hand 3 Skemp Maya. [facility] [address], [place], [address], [place]. tel:[phone] Referring Provider: Maya Adrian A, [facility] [address], [place], [address]. tel:[phone] [facility] , [address], [place], [address], [place] tel:[phone] [facility] , No Information 2 Skemp Maya. [facility] [address], [place], [address], [place]. tel:[phone] Referring Provider: Maya Adrian A, [facility] [address], [place], [address]. tel:[phone] Office/Outpa tient Visit, Est [facility] , [address], [place], [address], [place] tel:[phone] [facility] , Palindromic rheumatismOt her termite helper (current) drug therapyPrima ry osteoarthrit is, unspecified hand 2 Skemp Maya. [facility] [address], [place], [address], [place]. tel:[phone] Referring Provider: Maya Geiger, [facility] [address], [place], [address]. tel:[phone] [facility] , [address], [place], [address], [place] tel:[phone] [facility] , No Information 2 Skemp Maya. [facility] [address], [place], [address], [place]. tel:[phone] Referring Provider: Maya Geiger, [facility] [address], [place], [address]. tel:[phone] Office/Outpa tient Visit, Est [facility] , [address], [place], [address], [place] tel:[phone] [facility] , Rheumatoid arthritis without rheumatoid factor, multiple sitesOther termite helper (current) drug therapyPrima ry osteoarthrit is, unspecified handOther spondylosis, cervical region 2 Skemp Maya. [facility] [address], [place], [address], [place]. tel:[phone] Referring Provider: Maya Geiger, [facility] [address], [place], [address]. tel:[phone] Office/Outpa tient Visit, Est [facility] , [address], [place], [address], [place] tel:[phone] [facility] , Inflammatory Polyarthropa thy (chief complaint)Mo nitor Chronic High Risk Meds (chief complaint)Os teoarthritis (chief complaint) Rheumatoid arthritis without rheumatoid factor, multiple sitesOther termite helper (current) drug therapyPrima ry osteoarthrit is, unspecified handOther spondylosis, cervical regionTingli ng skin Skemp Maya. [facility] [address], [place], [address], [place]. tel:[phone] Referring Provider: Maya Geiger, [facility] [address], [place], [address]. tel:[phone] Office/Outpa tient Visit, Est [facility] , [address], [place], [address], [place] tel:[phone] [facility] , Rheumatoid arthritis without rheumatoid factor, multiple sitesOther snf (current) drug therapyPrima ry osteoarthrit is, unspecified hand Skemp Maya. [facility] [address], [place], [address], [place]. tel:[phone] Referring Provider: Maya Geiger, [facility] [address], [place], [address]. tel:[phone] Office/Outpa tient Visit, Est [facility] , [address], [place], [address], [place] tel:[phone] [facility] , Rheumatoid arthritis without rheumatoid factor, multiple sitesOther snf (current) drug therapyHidra denitis suppurativaP rimary osteoarthrit is, unspecified handOther specified counseling Mar-3 1 Skemp Maya. [facility] [address], [place], [address], [place]. tel:[phone] Referring Provider: Maya Geiger, [facility] [address], [place], [address]. tel:[phone] Office/Outpa tient Visit, Est [facility] , [address], [place], [address], [place] tel:[phone] [facility] , Rheumatoid arthritis without rheumatoid factor, multiple sitesOther termite helper (current) drug therapyHidra denitis suppurativaP leural effusion in other conditions classified elsewherePri darwin osteoarthrit is, unspecified handOther dorsalgia Oct- 0 Skemp Maya. [facility] [address], [place], [address], [place]. tel:[phone] Referring Provider: Maya Geiger, [facility] [address], [place], [address]. tel:[phone] Office/Outpa tient Visit, Est [facility] , [address], [place], [address], [place] tel:[phone] [facility] , Inflammatory Polyarthropa thy (chief complaint)Mo nitor Chronic High Risk Meds (chief complaint) Rheumatoid arthritis w/o rheumatoid factor, multiple sitesOther termite helper (current) drug therapyPrima ry osteoarthrit is, unspecified hand Sep- 0 Skemp Maya. [facility] [address], [place], [address], [place]. tel:[phone] Referring Provider: Maya Skemp A, [facility] [address], [place], [address]. tel:[phone] Office/Outpa tient Visit, Est [facility] , [address], [place], [address], [place] tel:[phone] [facility] , Inflammatory Polyarthropa thy (chief complaint)Mo nitor Chronic High Risk Meds (chief complaint) Rheumatoid arthritis w/o rheumatoid factor, multiple sitesOther snf (current) drug therapy 0 Skemp Maya. [facility] [address], [place], [address], [place]. tel:[phone] Referring Provider: Maya Ferrisemp A, [facility] [address], [place], [address]. tel:[phone] Office/Outpa tient Visit, Est [facility] , [address], [place], [address], [place] tel:[phone] [facility] , Osteoarthrit is (chief complaint)In flammatory Polyarthropa thy (chief complaint)Mo nitor Chronic High Risk Meds (chief complaint) Rheumatoid arthritis w/o rheumatoid factor, multiple sitesOther termite helper (current) drug therapyPrima ry osteoarthrit is, unspecified handHidraden itis suppurativa 9 Skemp Maya. [facility] [address], [place], [address], [place]. tel:[phone] Referring Provider: Maya Ferrisemp A, [facility] [address], [place], [address]. tel:[phone] Office/Outpa tient Visit, Est [facility] , [address], [place], [address], [place] tel:[phone] [facility] , Inflammatory Polyarthropa thy (chief complaint)Os teoarthritis (chief complaint)Mo nitor Chronic High Risk Meds (chief complaint) Rheumatoid arthritis w/o rheumatoid factor, multiple sitesOther termite helper (current) drug therapyHidra denitis suppurativaP rimary osteoarthrit is, unspecified hand Sep-3 Skemp Maya. [facility] [address], [place], [address], [place]. tel:[phone] Referring Provider: Maya Geiger, [facility] [address], [place], [address]. tel:[phone] Office/Outpa tient Visit, Est [facility] , [address], [place], [address], [place] tel:[phone] [facility] , Rheumatoid arthritis w/o rheumatoid factor, multiple sitesOther snf (current) drug therapy Skemp Maya. [facility] [address], [place], [address], [place]. tel:[phone] Referring Provider: Maya Geiger [facility] [address], [place], [address]. tel:[phone] Office/Outpa tient Visit, Est [facility] , [address], [place], [address], [place] tel:[phone] [facility] , Rheumatoid arthritis w/o rheumatoid factor, multiple sitesOther termite helper (current) drug therapyPrima ry osteoarthrit is, unspecified handCough Dec-2 Skemp Maya. [facility] [address], [place], [address], [place]. tel:[phone] Referring Provider: Maya Geiger, [facility] [address], [place], [address]. tel:[phone] Office/Outpa tient Visit, Est [facility] , [address], [place], [address], [place] tel:[phone] [facility] , Osteoarthrit is (chief complaint)Rh eumatoid arthritis (chief complaint)Mo nitor Chronic High Risk Meds (chief complaint) Rheumatoid arthritis w/o rheumatoid factor, multiple sitesHidrade nitis suppurativaP rimary osteoarthrit is, unspecified handOther snf (current) drug therapy 8 Skemp Maya. [facility] [address], [place], [address], [place]. tel:[phone] Referring Provider: Maya Geiger, [facility] [address], [place], [address]. tel:[phone] Office/Outpa tient Visit, Est [facility] , [address], [place], [address], [place] tel:[phone] [facility] , Rheumatoid arthritis without rheumatoid factor, multiple sitesOther termite helper (current) drug therapyHidra denitis suppurativa 0 8 Skemp Maya. [facility] [address], [place], [address], [place]. tel:[phone] Referring Provider: Maya Ferrisemp A, [facility] [address], [place], [address]. tel:[phone] Office/Outpa tient Visit, Est [facility] , [address], [place], [address], [place] tel:[phone] [facility] , Rheumatoid arthritis (chief complaint)Mo nitor Chronic High Risk Meds (chief complaint) Primary osteoarthrit is, unspecified handRheumato id arthritis without rheumatoid factor, multiple sitesOther termite helper (current) drug therapyHidra denitis suppurativaP leural effusion in other conditions classified elsewhere 8 Skemp Maya. [facility] [address], [place], [address], [place]. tel:[phone] Referring Provider: Maya Geiger, [facility] [address], [place], [address]. tel:[phone] Office/Outpa tient Visit, Est [facility] , [address], [place], [address], [place] tel:[phone] [facility] , Rheumatoid arthritis (chief complaint)Os teoarthritis (chief complaint)Mo nitor Chronic High Risk Meds (chief complaint) Rheumatoid arthritis without rheumatoid factor, multiple sitesOther snf (current) drug therapyPrima ry osteoarthrit is, unspecified handHidraden itis suppurativa 3 7 Skemp Maya. [facility] [address], [place], [address], [place]. tel:[phone] Referring Provider: Maya Geiger, [facility] [address], [place], [address]. tel:[phone] Office/Outpa tient Visit, Est [facility] , [address], [place], [address], [place] tel:[phone] [facility] , Rheumatoid arthritis (chief complaint)Os teoarthritis (chief complaint)Mo nitor Chronic High Risk Meds (chief complaint) Rheumatoid arthritis without rheumatoid factor, multiple sitesOther snf (current) drug therapyHidra denitis suppurativaP leural effusion in other conditions classified elsewhere [facility]. [facility] [address], [place], [address], [place]. tel:[phone] Referring Provider: Maya Geiger, [facility] [address], [place], [address]. tel:[phone] Office/Outpa tient Visit, Est [facility] , [address], [place], [address], [place] tel:[phone] [facility] , Rheumatoid arthritis (chief complaint)Mo nitor Chronic High Risk Meds (chief complaint) Rheumatoid arthritis without rheumatoid factor, multiple sitesOther snf (current) drug therapyHidra denitis suppurativaP leural effusion in other conditions classified elsewhereEle vated white blood cell count, unspecified Skemp Maya. [facility] [address], [place], [address], [place]. tel:[phone] Referring Provider: Maya Geiger [facility] [address], [place], [address]. tel:[phone] Office/Outpa tient Visit, Est [facility] , [address], [place], [address], [place] tel:[phone] [facility] , Rheumatoid arthritis (chief complaint)Mo nitor Chronic High Risk Meds (chief complaint) Primary osteoarthrit is, unspecified handRheumato id arthritis without rheumatoid factor, multiple sitesOther termite helper (current) drug therapyHidra denitis suppurativaO ther specified counseling Skemp Maya. [facility] [address], [place], [address], [place]. tel:[phone] Referring Provider: Maya Geiger, [facility] [address], [place], [address]. tel:[phone] Office/Outpa tient Visit, Est [facility] , [address], [place], [address], [place] tel:[phone] [facility] , Rheumatoid arthritis (chief complaint) Rheumatoid arthritis without rheumatoid factor, multiple sitesOther termite helper (current) drug therapyPrima ry osteoarthrit is, unspecified handHidraden itis suppurativaO ther specified counseling Skemp Maya. [facility] [address], [place], [address], [place]. tel:[phone] Referring Provider: Maya Geiger [facility] [address], [place], [address]. tel:[phone] [facility] , [address], [place], [address], [place] tel:[phone] [facility] , Encounter for screening for osteoporosis Skemp Maya. [facility] [address], [place], [address], [place]. tel:[phone] Referring Provider: Maya Geiger, [facility] [address], [place], [address]. tel:[phone] Office/Outpa tient Visit, Est [facility] , [address], [place], [address], [place] tel:[phone] [facility] , Rheumatoid arthritis (chief complaint)Mo nitor Chronic High Risk Meds (chief complaint) Rheumatoid arthritis without rheumatoid factor, multiple sitesPrimary osteoarthrit is, unspecified handHidraden itis suppurativaO ther snf (current) drug therapyOther specified counseling Dec- 6 Skemp Maya. [facility] [address], [place], [address], [place]. tel:[phone] Referring Provider: Maya Geiger, [facility] [address], [place], [address]. tel:[phone] Office/Outpa tient Visit, Est [facility] , [address], [place], [address], [place] tel:[phone] [facility] , Rheumatoid arthritis (chief complaint)Os teoarthritis (chief complaint)Mo nitor Chronic High Risk Meds (chief complaint) Rheumatoid ArthritisOst eoarthrosis, localized, primary, involving handTherapeu tic Drug Monitoring 5 Skemp Maya. [facility] [address], [place], [address], [place]. tel:[phone] Referring Provider: Maya Geiger [facility] [address], [place], [address]. tel:[phone] Office/Outpa tient Visit, Est [facility] , [address], [place], [address], [place] tel:[phone] [facility] , Rheumatoid Arthritis (chief complaint)Mo nitor chronic high risk medications (chief complaint) Pleural EffusionOste oarthrosis, localized, primary, involving handTherapeu tic Drug MonitoringRh eumatoid Arthritis 4 Skemp Maya. [facility] [address], [place], [address], [place]. tel:[phone] Referring Provider: Maya Geiger, [facility] [address], [place], [address]. tel:[phone] Office/Outpa tient Visit, Est [facility] , [address], [place], [address], [place] tel:[phone] [facility] , pleural effusions (chief complaint)in flammatory arthritis (chief complaint) Osteoarthros is, localized, primary, involving handUnspecif ied inflammatory polyarthropa thyTherapeut ic Drug MonitoringPl eural Effusion Skemp Maya. [facility] [address], [place], [address], [place]. tel:[phone] Referring Provider: Maya Geiger [facility] [address], [place], [address]. tel:[phone] Office/Outpa tient Visit, Est [facility] , [address], [place], [address], [place] tel:[phone] [facility] , pleural effusions (chief complaint)in flammatory arthritis (chief complaint) Pleural EffusionUnsp ecified inflammatory polyarthropa thyOsteoarth rosis, localized, primary, involving handTherapeu tic Drug Monitoring 4 Skemp Maya. [facility] [address], [place], [address], [place]. tel:[phone] Referring Provider: Maya Geiger, [facility] [address], [place], [address]. tel:[phone] Office/Outpa tient Visit, New [facility] , [address], [place], [address], [place] tel:[phone] [facility] , pleural effusions (chief complaint)fe alexia (chief complaint)ar thritis (chief complaint) Pain in joint involving handOsteoart hrosis, localized, primary, involving handUnspecif ied inflammatory polyarthropa thyPleural Effusion 4 Skemp Maya. [facility] [address], [place], [address], [place]. tel:[phone] Referring Provider: Maya Adrian A, [facility] [address], [place], [address]. tel:[phone] [facility] , [address], [place], [address], [place] tel:[phone] [facility] , No Information Skemp Maya. [facility] [address], [place], [address], [place]. tel:[phone] Family History Family Member Type Diagnosis Age At Onset No Information Immunizations Vaccine Date Status Comments COVID-19 [employer] administered S ource: Other Provider Payers Payer name Insurance type Covered alliance party ID Piercea smitajerilyn(s) [facility] [employer] CI [id number] Social History Type Description Quantity Date Captured Comments Sex Female Smoking Status No Information Chief Complaint And Reason For Visit No Information Reason For Referral Reason For Referral No Information Plan Of Treatment Date Type Action Status Goal Tobacco cessation counseling completed Goal Tobacco cessation counseling completed Goal Tobacco cessation counseling completed Goal Tobacco cessation counseling completed Goal Tobacco cessation counseling completed History Of Present Illness Encounter Date Complaint [...]
--- OUTSIDE RECORDS SUMMARY | 2024-08-09 10:48 | XMS_ITS | Clinical Summary ---
Author Organization [facility] Address [address] [place] [address] Care Team Providers Care Grooving Lathe Tender Name Role Phone Unavailable Primary Care Provider [...]
--- OUTSIDE RECORDS SUMMARY | 2024-08-09 10:48 | XMS_ITS | Clinical Summary ---
Author Organization [facility] Address [place], [place] [address] Care Team Providers Care Preparole Counseling Aide Name Role Phone Kevin Knight MD Primary Care Provider + [phone] Allergies No known active allergies Medications Medication [...] Hypocalcemia 04/08/2014 ACP (advance care planning) 04/08/2014 Overview (04/08/2014): Full Code aLila Cabezasradha (daughter) [phone] Chilo Cabezastipmartine (son) [phone] Fever 02/15/2014 Insomnia, unspecified 12/27/2012 Tobacco use disorder 12/27/2012 Resolved Problems Problem Noted Date Diagnosed Date Resolved Date Empyema 02/15/2014 04/08/2014 Immunizations Name Administration Dates Next Due Influenza, IIV3 (Age >=3 years) 08/31/2012 Influenza, IIV4 08/29/2015 Tdap 03/01/2011 Family History Medical History Relation Name Comments Heart Disease Father [place] Cancer Maternal Grandfather stomach Relation Name Status [...] Comments Blood Pressure 118/77 09/21/2015 1:15 PM MOTORCOACH DRIVER Pulse 98 09/21/2015 1:15 PM MOTORCOACH DRIVER Temperature 36.7 ??C (98 ??F) 09/21/2015 1:15 PM MOTORCOACH DRIVER Respiratory Rate 16 09/21/2015 1:15 PM MOTORCOACH DRIVER Oxygen Saturation 94% 09/21/2015 5:50 AM MOTORCOACH DRIVER Inhaled Oxygen Concentration - - Weight 79.4 kg (175 lb) 09/20/2015 11:07 PM MOTORCOACH DRIVER Height 162.6 cm (5' 4.02) 09/20/2015 11:07 PM C Body Mass Index 30.02 09/20/2015 11:07 PM MOTORCOACH DRIVER Plan of Treatment Upcoming Encounters Date Type Department Care Team (Latest Contact Info) Description 08/14/2024 1:07 PM CDT Hospital Encounter [facility] [address] [place] [address] Favian Balderas MD [address] [place] [address] 08/14/2024 1:07 PM CDT - 08/14/2024 7:05 PM CDT Surgery [facility] [address] [place] [address] Favian Balderas MD [address] [place] [address] Anterior Spine interbody Fusion L5-S1, Posterior Spine Fusion with Instrumentation L5-S1, Scheduled Procedures Name Priority Associated Diagnoses Date/Ti me FUSION ANTERIOR POSTERIOR DIRECT LATERAL SPINE LEVEL 01 Elective Spondylolisthesis, Lumbosacral M43.17 Stenosis, Lumbosacral M48.07 08/14/2024 1:07 PM CDT DECOMPRESSION SPINE LEVEL 01 Elective Spondylolisthesis, Lumbosacral M43.17 Stenosis, Lumbosacral M48.07 08/14/2024 1:07 PM CDT Health Maintenance Due Date Last Done Comments Depression screening for age 12+ 1975 HIV for age 15-65 1978 BMI (ht and wt on same day) for age 18+ 1981 Hepatitis C screening for age 18-79 1981 Colonoscopy through age 75 2008 Zoster (shingles) series for age 50+ (1 of 2) 2013 Mammogram for age 45-75 01/30/2014 01/31/20 13, 03/30/2012 (Completed outside of [facility]) Lipids for age 45-75 11/14/2018 11/14/2013, 09/30/2011 (Completed outside of [facility]) Tetanus booster 03/01/2021 03/01/2011 COVID-19 vaccine series ( season) 2024 09/03/2022, 01/03/2021 Influenza for age 50-64 07/02/2024 08/29/2015, 08/31 Pap test for age 21-65 07/15/2025 , 07/15/2022, 02/10/2019, Additional history exists Tdap Completed 03/01/2011 Pneumococcal series for age 6-64 Aged Out No longer eligible based on patient's age to complete this topic Procedures Procedure Name Priority Date/Time Associated Diagnosis Comments HPV HIGH RISK Routine 07/15/2022 2:00 PM CDT LIPID PANEL Routine 11/14/2013 12:02 PM MOTORCOACH DRIVER Routine general medical examination at a health care facility from Last 3 Months or Most Recently Relevant to Health Maintenance Results * HPV HIGH RISK (07/15/2022 2:00 PM CDT) TYPE 16 Negative Negative 07/20/2022 3:12 PM CDT [facility] TYPE 18 Negative Negative 07/20/2022 3:12 PM CDT [facility] TR[facility] OTHER HIGH RISK TYPES Negative Negative 07/20/2022 3:12 PM CDT [facility] TRA LABORATORY Other (Cervical/Vagina l) 07/15/2022 2:00 PM CDT 07/17/2022 9:02 AM CDT [facility]ative [facility] - 07/20/2022 3:12 PM CDT HPV types 16, 18, 31, 33, 35, 39, 45, 51, 52, 56, 58, 59, 66 and 68 DNA were undetectable or below the pre-set threshold. Methodology: Rola Matt 4800 HPV Test Veena Lopez PA-C MICROBIOLOGY [facility] [address] [place] [address], * (ABNORMAL) LIPID PANEL (11/14/2013 12:02 PM MOTORCOACH DRIVER) CHOLESTEROL,TOTA L 164 100 - 199 mg/dL [facility] TRIGLYCERIDES 127 <150 mg/dL [facility] HDL CHOLESTEROL 32(L) >40 mg/dL [facility] CHOL/HDL RATIO 5.13(H) <4.50 [facility] NON-HDL CHOLESTEROL 132 Undefined mg/dL [facility] LDL CHOLESTEROL 107 <131 mg/dL [facility] PATIENT STATUS Fasting [facility] Blood specimen (specimen) BLOOD SPECIMEN / Unknown 11/14/2013 12:02 PM MOTORCOACH DRIVER 11/14/2013 11:57 AM MOTORCOACH DRIVER Arnaldo Brumfield MD CHEMISTRY [facility] INTERNAL ZIP [address] [place], [place] [id number] from Last 3 Months or Most Recently [...] 1:36 AM 02/19/2014 5:17 PM Care Teams Preparole Counseling Aide Relationship Specialty Start Date End Date Kevin Knight MD PCP - General Family Practice 08/29/15
--- OUTSIDE RECORDS SUMMARY | 2024-08-09 10:48 | XMS_ITS | Continuity of Care Document ---
Author Organization [facility] Address [address] [place] [address] Phone Care Team Providers Care Technology Strategist Name Role Phone Favian Balderas MD Unavailable Unavailable Allergies, Adverse Reactions, Alerts Substance Reaction Status Criticality No Known Allergies Active No Inform ation Medications Medication Instructions Dosage Effective Dates (start - stop) Status Comments tramadol 50 mg tablet take 1 tablet by ORAL route every 6 - 8 hours PRN/PAIN 50 MG - Active VESICARE LS (unknown strength) Not Available - Active GABAPENTIN (unknown strength) Not Available - Active Procedures Procedure Date Office/Outpatient Visit,Est, Mod 2023 Office/Outpatient Visit,New, Mod 2023 X-Ray Exam Lwr Spine, Min 4 Views Advance Directives Directive Yes / No Effective Date File Name No Information Encounters Encounter Description Practice Location Reason(s) For Visit Diagnoses Date Provider Providers Copied on Encounter [facility], [address], [place], [place], [id number], [place] tel:[phone] [facility] No Information 4 Sherrie Ballesteros. [facility], [address], [address], [place], [place], [id number] , [place]. tel:[phone] Referring Provider: Same As Referring. Office/Outpat ient Visit,Est, Mod [facility], [address], [place], [id number], [place] tel:[phone] [facility] Spinal stenosis, lumbosacral regionSpondylol isthesis, lumbosacral regionOther intervertebral disc displacement, lumbosacral region Sep-2 4 Balderasjerrell Ballesteros. [facility], [address], [address], [place], [place], [id number] , [place]. tel:[phone] Referring Provider: Favian Chin, [facility] [address], [address], [facility] [place], [address] . tel:[phone] Office/Outpat ient Visit,New, [facility], [address], [place], [id number], [place] tel:[phone] [facility] Spondylolisthes is, lumbar regionSpinal stenosis, lumbar region with neurogenic claudicationRad iculopathy, lumbar region Sep-1 4 Balderasjerrell Ballesteros. [facility], [address], [address], [place], [place], [address] , [place]. tel:[phone] Referring Provider: Favian Chin, [facility] [address], [address], [facility] [place], [address] . tel:[phone] Family History Family Member Type Diagnosis Age At Onset Mother Problem (finding) Hypertension Father Problem (finding) Hypertension Payers Payer name Insurance type Covered green party ID Yoselin quijano(s) [facility] 2023 CI [id number] Social History Type Description Quantity Date Captured Comments Alcohol Use Details Unknown Caffeine Use Details Unknown Tobacco Use Status No Information Smoking Status No Information Sex Female Chief Complaint And Reason For Visit No Information Reason For Referral Reason For Referral No Information Plan Of Treatment Date Type Action Status Appointment Briseyda Chong BOOKED Appointment Briseyda Chong BOOKED Appointment Briseyda Chong BOOKED Future Order: Radiology Order AP -[id number]-Ovzr-[id number] Lum (APLatFlExL), Ordered on: Ordered History Of Present Illness Encounter Date Complaint History Of Prese nt Illness No Information Functional Status Date Functional Assessmen t No Information Instructions Date Instruction Additional Infor mation No Information Assessments Type Assessment Date No Information Patient Care Teams Name Effective Dates (start - stop) Status Members No Information
== END 2024-08-09 10:45 | disposition home or self-care (01) ==
PROVIDERS: PCP Physician Assistant Medical; Visit Provider Physician Assistant Medical
DX: Z00.00 Encounter for general adult medical examination without abnormal findings (principal); Z01.818 Encounter for other preprocedural examination; R53.83 Other fatigue; E78.5 Hyperlipidemia, unspecified; Z13.6 Encounter for screening for cardiovascular disorders; Z13.1 Encounter for screening for diabetes mellitus
CPT/HCPCS: 80053; 80061; 84443

== ENCOUNTER 2024-08-22 11:24 | Outpatient (CLI) | payer OTHER, SELFPAY ==
--- OUTSIDE RECORDS SUMMARY | 2024-08-22 11:29 | XMS_ITS | Continuity of Care Document ---
Author Organization [facility] Address [address] [place] [address] Phone Care Team Providers Care Automobile Accessories Installer Name Role Phone Favian Balderas MD Unavailable Unavailable Allergies, Adverse Reactions, Alerts Substance Reaction Status Criticality No Known Allergies Active No Inform ation Medications Medication Instructions Dosage Effective Dates (start - stop) Status Comments hydromorphone 2 mg tablet take 1 - 2 Tablet by Oral route every 4 - 6 hours prn acute post op pain G89.18 - Active hydroxyzine HCl 10 mg tablet take 1 Tablet by Oral route every 6 hours prn acute post op pain G89.18 - Active gabapentin 300 mg capsule take two cap PO BID - Active tramadol 50 mg tablet take 1 tablet by ORAL route every 6 - 8 hours PRN/PAIN 50 MG - Active VESICARE LS (unknown strength) Not Available - Active GABAPENTIN (unknown strength) Not Available - Active Procedures Procedure Date PSF, Lumbar - PA Lami, Facetectomy/Foraminotomy, Lumbar ( Stenosis) Posterior Instrumentation, Non-segmental - PA PEEK/ Cage/ Implant, For Interbody Fusio n - PA PSF, Lumbar ALIF / OLIF Anterior Lumbar Interbody Fu tarun - Cosurgeon Lami, Facetectomy/Foraminotomy, Lumbar ( Stenosis) Posterior Instrumentation, Non-segmental PEEK/ Cage/ Implant, For Interbody Fusio n Bone Marrow Aspiration, From I ncision Office/Outpatient Visit,Est, Mod 2023 Office/Outpatient Visit,New, Mod 2023 X-Ray Exam Lwr Spine, Min 4 Views Advance Directives Directive Yes / No Effective Date File Name No Information Encounters Encounter Description Practice Location Reason(s) For Visit Diagnoses Date Provider Providers Copied on Encounter [facility], [address], [place], [place], [id number], [place] tel:[phone] [facility] No Information 4 Sherrie Ballesteros. [facility], [address] [place] [address], [address], [place], [place], [id number] , [place]. [phone] [facility], [address], [facility] [place], [id number], [place] tel:[phone] [facility] No Information 4 Panvica Mayco. [facility], [address] [place] [address], [address], [facility], [id number] , [place]. tel:[phone] Referring Provider: Favian Chin, [facility] [address], [address], [place], [address] . tel:[phone] [facility], [address], [facility] [place], [id number], [place] tel:[phone] [facility] No Information 4 Sherrie Ballesteros. [facility], [address] [place] [address], [address], [facility] [place], [id number] , [place]. tel:[phone] Referring Provider: Favian Chin, [facility] [address], [address], [place], [address] . tel:[phone] Office/Outpat ient Visit,Est, Mod [facility], [address], [facility] [facility], [id number], [place] tel:[phone] [facility] Spinal stenosis, lumbosacral regionSpondylol isthesis, lumbosacral regionOther intervertebral disc displacement, lumbosacral region Sep-2 4 Balderas Favian. [facility], [address], [address], [place], [place], [address] , . tel:[phone] Referring Provider: Favian Chin, [facility] [address], [address], [place], [address] . tel:[phone] Office/Outpat ient Visit,New, Mod [facility], [address], [place] [facility] [place], [id number], [place] tel:[phone] [facility] Spondylolisthes is, lumbar regionSpinal stenosis, lumbar region with neurogenic claudicationRad iculopathy, lumbar region Sep-1 4 Balderas Favian. [facility], [address], [address], [place], [place], [address] , [place]. tel:[phone] Referring Provider: Favian Chin, [facility] [address], [address], [place], [address] . tel:[phone] Family History Family Member Type Diagnosis Age At Onset Mother Problem (finding) Hypertension Father Problem (finding) Hypertension Payers Payer name Insurance type Covered alliance party ID Yoselin quijano(s) [facility] 2023 CI [id number] Social History Type Description Quantity Date Captured Comments Alcohol Use Details Unknown Caffeine Use Details Unknown Tobacco Use Status No Information Smoking Status No Information Sex Female Chief Complaint And Reason For Visit No Information Reason For Referral Reason For Referral No Information Plan Of Treatment Date Type Action Status Appointment Briseyda Chong BOOKED Appointment Briseyda Chong BOOKED Future Order: Radiology Order AP -Wgv-Rgav-Ium Lum (APLatFlExL), Ordered on: Ordered History Of Present Illness Encounter Date Complaint History Of Prese nt Illness No Information Functional Status Date Functional Assessmen t No Information Instructions Date Instruction Additional Infor mation No Information Assessments Type Assessment Date No Information Patient Care Teams Name Effective Dates (start - stop) Status Members No Information
--- OUTSIDE RECORDS SUMMARY | 2024-08-22 11:29 | XMS_ITS | Continuity of Care Document ---
Author Organization [facility] Address [address] [place] [address] Phone Care Team Providers Care Scheduling Representative Name Role Phone Maya Adrian MD [...] Encounter [facility] , [address], [place], [address], [place] tel:[phone] [facility] No Information 4 Skemp Maya. [facility] [address], [place], [address], [place]. tel:[phone] Office/Outpa tient Visit, Est [facility] , [address], [place], [address], [place] tel:[phone] [facility] , Rheumatoid arthritis without rheumatoid factor, multiple sitesHidrade nitis suppurativaO ther long filler cigar roller machine (current) drug therapyOther specified counseling 4 Skemp Maya. [facility] [address], [place], [address], [place]. tel:[phone] Referring Provider: Maya Skemp A, [facility] [address], [place], [address]. tel:[phone] [facility] , [address], [place], [address], [place] tel:[phone] [facility] , No Information 3 Skemp Maya. [facility] [address], [place], [address], [place]. tel:[phone] [facility] , [address], [place], [address], [place] tel:[phone] [facility] , No Information 3 Skemp Maya. [facility] [address], [place], [address], [place]. tel:[phone] Referring Provider: Maya Skemp A, [facility] [address], [place], [address]. tel:[phone] [facility] , [address], [place], [address], [place] tel:[phone] [facility] [place] No Information 3 Skemp Maya. [facility] [address], [place], [address], [place]. tel:[phone] Office/Outpa tient Visit, Est [facility] , [address], [place], [address], [place] tel:[phone] [facility] , Palindromic rheumatism, unspecified siteHidraden itis suppurativaO ther long filler cigar roller machine (current) drug therapyTrigg er fingerPrimar y osteoarthrit is, unspecified hand 3 Skemp Maya. [facility] [address], [place], [address], [place]. tel:[phone] Referring Provider: Maya Adrian A, [facility] [address], [place], [address]. tel:[phone] [facility] , [address], [place], [address], [place] tel:[phone] [facility] , No Information 2 Skemp Maya. [facility] [address], [place], [address], [place]. tel:[phone] Referring Provider: Maya Adrian A, [facility] [address], [place], [address]. tel:[phone] Office/Outpa tient Visit, Est [facility] , [address], [place], [address], [place] tel:[phone] [facility] , Palindromic rheumatismOt her long filler cigar roller machine (current) drug therapyPrima ry osteoarthrit is, unspecified hand 2 Skemp Maya. [facility] [address], [place], [address], [place]. tel:[phone] Referring Provider: Maya Geiger, [facility] [address], [place], [address]. tel:[phone] [facility] , [address], [place], [address], [place] tel:[phone] [facility] , No Information 2 Skemp Maya. [facility] [address], [place], [address], [place]. tel:[phone] Referring Provider: Maya Geiger, [facility] [address], [place], [address]. tel:[phone] Office/Outpa tient Visit, Est [facility] , [address], [place], [address], [place] tel:[phone] [facility] , Rheumatoid arthritis without rheumatoid factor, multiple sitesOther long filler cigar roller machine (current) drug therapyPrima ry osteoarthrit is, unspecified handOther spondylosis, cervical region 2 Skemp Maya. [facility] [address], [place], [address], [place]. tel:[phone] Referring Provider: Maya Geiger, [facility] [address], [place], [address]. tel:[phone] Office/Outpa tient Visit, Est [facility] , [address], [place], [address], [place] tel:[phone] [facility] , Inflammatory Polyarthropa thy (chief complaint)Mo nitor Chronic High Risk Meds (chief complaint)Os teoarthritis (chief complaint) Rheumatoid arthritis without rheumatoid factor, multiple sitesOther half-way (current) drug therapyPrima ry osteoarthrit is, unspecified handOther spondylosis, cervical regionTingli ng skin Skemp Maya. [facility] [address], [place], [address], [place]. tel:[phone] Referring Provider: Maya Geiger, [facility] [address], [place], [address]. tel:[phone] Office/Outpa tient Visit, Est [facility] , [address], [place], [address], [place] tel:[phone] [facility] , Rheumatoid arthritis without rheumatoid factor, multiple sitesOther half-way (current) drug therapyPrima ry osteoarthrit is, unspecified hand Skemp Maya. [facility] [address], [place], [address], [place]. tel:[phone] Referring Provider: Maya Geiger, [facility] [address], [place], [address]. tel:[phone] Office/Outpa tient Visit, Est [facility] , [address], [place], [address], [place] tel:[phone] [facility] , Rheumatoid arthritis without rheumatoid factor, multiple sitesOther long filler cigar roller machine (current) drug therapyHidra denitis suppurativaP rimary osteoarthrit is, unspecified handOther specified counseling Mar-3 1 Skemp Maya. [facility] [address], [place], [address], [place]. tel:[phone] Referring Provider: Maya Geiger, [facility] [address], [place], [address]. tel:[phone] Office/Outpa tient Visit, Est [facility] , [address], [place], [address], [place] tel:[phone] [facility] , Rheumatoid arthritis without rheumatoid factor, multiple sitesOther half-way (current) drug therapyHidra denitis suppurativaP leural effusion in other conditions classified elsewherePri darwin osteoarthrit is, unspecified handOther dorsalgia Oct- 0 Skemp Maya. [facility] [address], [place], [address], [place]. tel:[phone] Referring Provider: Maya Geiger, [facility] [address], [place], [address]. tel:[phone] Office/Outpa tient Visit, Est [facility] , [address], [place], [address], [place] tel:[phone] [facility] , Inflammatory Polyarthropa thy (chief complaint)Mo nitor Chronic High Risk Meds (chief complaint) Rheumatoid arthritis w/o rheumatoid factor, multiple sitesOther long filler cigar roller machine (current) drug therapyPrima ry osteoarthrit is, unspecified hand Sep- 0 Skemp Maya. [facility] [address], [place], [address], [place]. tel:[phone] Referring Provider: Maya Skemp A, [facility] [address], [place], [address]. tel:[phone] Office/Outpa tient Visit, Est [facility] , [address], [place], [address], [place] tel:[phone] [facility] , Inflammatory Polyarthropa thy (chief complaint)Mo nitor Chronic High Risk Meds (chief complaint) Rheumatoid arthritis w/o rheumatoid factor, multiple sitesOther long filler cigar roller machine (current) drug therapy 0 Skemp Maya. [facility] [address], [place], [address], [place]. tel:[phone] Referring Provider: Maya Ferrisemp A, [facility] [address], [place], [address]. tel:[phone] Office/Outpa tient Visit, Est [facility] , [address], [place], [address], [place] tel:[phone] [facility] , Osteoarthrit is (chief complaint)In flammatory Polyarthropa thy (chief complaint)Mo nitor Chronic High Risk Meds (chief complaint) Rheumatoid arthritis w/o rheumatoid factor, multiple sitesOther half-way (current) drug therapyPrima ry osteoarthrit is, unspecified handHidraden itis suppurativa 9 Skemp Maya. [facility] [address], [place], [address], [place]. tel:[phone] Referring Provider: Maya Ferrisemp A, [facility] [address], [place], [address]. tel:[phone] Office/Outpa tient Visit, Est [facility] , [address], [place], [address], [place] tel:[phone] [facility] , Inflammatory Polyarthropa thy (chief complaint)Os teoarthritis (chief complaint)Mo nitor Chronic High Risk Meds (chief complaint) Rheumatoid arthritis w/o rheumatoid factor, multiple sitesOther long filler cigar roller machine (current) drug therapyHidra denitis suppurativaP rimary osteoarthrit is, unspecified hand Sep-3 Skemp Maya. [facility] [address], [place], [address], [place]. tel:[phone] Referring Provider: Maya Geiger, [facility] [address], [place], [address]. tel:[phone] Office/Outpa tient Visit, Est [facility] , [address], [place], [address], [place] tel:[phone] [facility] , Rheumatoid arthritis w/o rheumatoid factor, multiple sitesOther long filler cigar roller machine (current) drug therapy Skemp Maya. [facility] [address], [place], [address], [place]. tel:[phone] Referring Provider: Maya Geiger [facility] [address], [place], [address]. tel:[phone] Office/Outpa tient Visit, Est [facility] , [address], [place], [address], [place] tel:[phone] [facility] , Rheumatoid arthritis w/o rheumatoid factor, multiple sitesOther long filler cigar roller machine (current) drug therapyPrima ry osteoarthrit is, unspecified handCough Dec-2 Skemp Maya. [facility] [address], [place], [address], [place]. tel:[phone] Referring Provider: Maya Geiger, [facility] [address], [place], [address]. tel:[phone] Office/Outpa tient Visit, Est [facility] , [address], [place], [address], [place] tel:[phone] [facility] , Osteoarthrit is (chief complaint)Rh eumatoid arthritis (chief complaint)Mo nitor Chronic High Risk Meds (chief complaint) Rheumatoid arthritis w/o rheumatoid factor, multiple sitesHidrade nitis suppurativaP rimary osteoarthrit is, unspecified handOther long filler cigar roller machine (current) drug therapy 8 Skemp Maya. [facility] [address], [place], [address], [place]. tel:[phone] Referring Provider: Maya Geiger, [facility] [address], [place], [address]. tel:[phone] Office/Outpa tient Visit, Est [facility] , [address], [place], [address], [place] tel:[phone] [facility] , Rheumatoid arthritis without rheumatoid factor, multiple sitesOther half-way (current) drug therapyHidra denitis suppurativa 0 8 Skemp Maya. [facility] [address], [place], [address], [place]. tel:[phone] Referring Provider: Maya Ferrisemp A, [facility] [address], [place], [address]. tel:[phone] Office/Outpa tient Visit, Est [facility] , [address], [place], [address], [place] tel:[phone] [facility] , Rheumatoid arthritis (chief complaint)Mo nitor Chronic High Risk Meds (chief complaint) Primary osteoarthrit is, unspecified handRheumato id arthritis without rheumatoid factor, multiple sitesOther long filler cigar roller machine (current) drug therapyHidra denitis suppurativaP leural effusion in other conditions classified elsewhere 8 Skemp Maya. [facility] [address], [place], [address], [place]. tel:[phone] Referring Provider: Maya eGiger, [facility] [address], [place], [address]. tel:[phone] Office/Outpa tient Visit, Est [facility] , [address], [place], [address], [place] tel:[phone] [facility] , Rheumatoid arthritis (chief complaint)Os teoarthritis (chief complaint)Mo nitor Chronic High Risk Meds (chief complaint) Rheumatoid arthritis without rheumatoid factor, multiple sitesOther long filler cigar roller machine (current) drug therapyPrima ry osteoarthrit is, unspecified handHidraden itis suppurativa 3 7 Skemp Maya. [facility] [address], [place], [address], [place]. tel:[phone] Referring Provider: Maya Geiger, [facility] [address], [place], [address]. tel:[phone] Office/Outpa tient Visit, Est [facility] , [address], [place], [address], [place] tel:[phone] [facility] , Rheumatoid arthritis (chief complaint)Os teoarthritis (chief complaint)Mo nitor Chronic High Risk Meds (chief complaint) Rheumatoid arthritis without rheumatoid factor, multiple sitesOther long filler cigar roller machine (current) drug therapyHidra denitis suppurativaP leural effusion in other conditions classified elsewhere [facility]. [facility] [address], [place], [address], [place]. tel:[phone] Referring Provider: Maya Geiger, [facility] [address], [place], [address]. tel:[phone] Office/Outpa tient Visit, Est [facility] , [address], [place], [address], [place] tel:[phone] [facility] , Rheumatoid arthritis (chief complaint)Mo nitor Chronic High Risk Meds (chief complaint) Rheumatoid arthritis without rheumatoid factor, multiple sitesOther half-way (current) drug therapyHidra denitis suppurativaP leural effusion in other conditions classified elsewhereEle vated white blood cell count, unspecified Skemp Maya. [facility] [address], [place], [address], [place]. tel:[phone] Referring Provider: Maya Geiger [facility] [address], [place], [address]. tel:[phone] Office/Outpa tient Visit, Est [facility] , [address], [place], [address], [place] tel:[phone] [facility] , Rheumatoid arthritis (chief complaint)Mo nitor Chronic High Risk Meds (chief complaint) Primary osteoarthrit is, unspecified handRheumato id arthritis without rheumatoid factor, multiple sitesOther long filler cigar roller machine (current) drug therapyHidra denitis suppurativaO ther specified counseling Skemp Maya. [facility] [address], [place], [address], [place]. tel:[phone] Referring Provider: Maya Geiger, [facility] [address], [place], [address]. tel:[phone] Office/Outpa tient Visit, Est [facility] , [address], [place], [address], [place] tel:[phone] [facility] , Rheumatoid arthritis (chief complaint) Rheumatoid arthritis without rheumatoid factor, multiple sitesOther long filler cigar roller machine (current) drug therapyPrima ry osteoarthrit is, unspecified handHidraden itis suppurativaO ther specified counseling Skemp Maya. [facility] [address], [place], [address], [place]. tel:[phone] Referring Provider: Maya Geiger [facility] [address], [place], [address]. tel:[phone] [facility] , [address], [place], [address], [place] tel:[phone] [facility] , Encounter for screening for osteoporosis Skemp Maya. [facility] [address], [place], [address], [place]. tel:[phone] Referring Provider: Maya Geiger, [facility] [address], [place], [address]. tel:[phone] Office/Outpa tient Visit, Est [facility] , [address], [place], [address], [place] tel:[phone] [facility] , Rheumatoid arthritis (chief complaint)Mo nitor Chronic High Risk Meds (chief complaint) Rheumatoid arthritis without rheumatoid factor, multiple sitesPrimary osteoarthrit is, unspecified handHidraden itis suppurativaO ther long filler cigar roller machine (current) drug therapyOther specified counseling Dec- 6 Skemp Maya. [facility] [address], [place], [address], [place]. tel:[phone] Referring Provider: Maya Geiger, [facility] [address], [place], [address]. tel:[phone] Office/Outpa tient Visit, Est [facility] , [address], [place], [address], [place] tel:[phone] [facility] , Rheumatoid arthritis (chief complaint)Os teoarthritis (chief complaint)Mo nitor Chronic High Risk Meds (chief complaint) Rheumatoid ArthritisOst eoarthrosis, localized, primary, involving handTherapeu tic Drug Monitoring 5 Skemp Maya. [facility] [address], [place], [address], [place]. tel:[phone] Referring Provider: Maya Geiger [facility] [address], [place], [address]. tel:[phone] Office/Outpa tient Visit, Est [facility] , [address], [place], [address], [place] tel:[phone] [facility] , Rheumatoid Arthritis (chief complaint)Mo nitor chronic high risk medications (chief complaint) Pleural EffusionOste oarthrosis, localized, primary, involving handTherapeu tic Drug MonitoringRh eumatoid Arthritis 4 Skemp Maya. [facility] [address], [place], [address], [place]. tel:[phone] Referring Provider: Maya Geiger, [facility] [address], [place], [address]. tel:[phone] Office/Outpa tient Visit, Est [facility] , [address], [place], [address], [place] tel:[phone] [facility] , pleural effusions (chief complaint)in flammatory arthritis (chief complaint) Osteoarthros is, localized, primary, involving handUnspecif ied inflammatory polyarthropa thyTherapeut ic Drug MonitoringPl eural Effusion Skemp Maya. [facility] [address], [place], [address], [place]. tel:[phone] Referring Provider: Maya Geiger [facility] [address], [place], [address]. tel:[phone] Office/Outpa tient Visit, Est [facility] , [address], [place], [address], [place] tel:[phone] [facility] , pleural effusions (chief complaint)in flammatory arthritis (chief complaint) Pleural EffusionUnsp ecified inflammatory polyarthropa thyOsteoarth rosis, localized, primary, involving handTherapeu tic Drug Monitoring 4 Skemp Maya. [facility] [address], [place], [address], [place]. tel:[phone] Referring Provider: Maya Geiger, [facility] [address], [place], [address]. tel:[phone] Office/Outpa tient Visit, New [facility] , [address], [place], [address], [place] tel:[phone] [facility] , pleural effusions (chief complaint)fe alexia (chief complaint)ar thritis (chief complaint) Pain in joint involving handOsteoart hrosis, localized, primary, involving handUnspecif ied inflammatory polyarthropa thyPleural Effusion 4 Skemp Maya. [facility] [address], [place], [address], [place]. tel:[phone] Referring Provider: Maya Adrian A, [facility] [address], [place], [address]. tel:[phone] [facility] , [address], [place], [address], [place] tel:[phone] [facility] , No Information Skemp Maya. [facility] [address], [place], [address], [place]. tel:[phone] Family History Family Member Type Diagnosis Age At Onset No Information Immunizations Vaccine Date Status Comments COVID-19 [employer] administered S ource: Other Provider Payers Payer name Insurance type Covered alliance party ID Piercea [id number]) [facility] CI [id number] Social History Type Description Quantity Date Captured [...]
--- OUTSIDE RECORDS SUMMARY | 2024-08-22 11:30 | XMS_ITS | Clinical Summary ---
Author Organization [facility] Address [place], [place] [address] Care Team Providers Care Donor Recruiter Name Role Phone Veena Lopez PA-C Primary Care Provider [phone] Allergies Active Allergy Reactions Criticality Noted Date Comments Blood-Group Specific Substance Other - Describe In Comment Field 08/15/2024 Patient has an anti-E antibody. Blood products may be delayed. Draw patient 24 hours prior to transfusion. For [facility] testing, draw one red top and two purple top tubes for all Type and Screen orders. Medications Medication Sig Dispensed Refills Start Date End Date Status albuterol HFA (PRO-AIR; VENTOLIN; PROVENTIL) 90 mcg/actuation inhaler Inhale 2 Puffs by mouth every 4 hours if needed. Every 4-6 hrs PRN Active buPROPion (Wellbutrin SR) 150 mg Sustained-Release tablet Take 150 mg by mouth two times daily. Active Calcium-Cholecalci ferol, D3, 500 mg-3.125 mcg (125 unit) tab Take 1 Tablet by mouth two times daily. Active LORazepam (Ativan) 1 mg tablet Take 1 mg by mouth every 6 hours if needed. Every 6-8 hours PRN Active solifenacin (VESIcare) 10 mg tablet Take 10 mg by mouth once daily. Active traZODone (DESYREL) 50 mg tablet Take 50-100 mg by mouth at bedtime if needed. Active multivitamin,ther and minerals (multivitamin with minerals) tablet Take 1 Tablet by mouth once daily. Active acetaminophen (Tylenol Extra Strength) 500 mg tablet Take 500-1,000 mg by mouth every 6 hours if needed. Max acetaminophen dose: 4000mg in 24 hrs. Active WalkerIndications: S/P lumbar spinal fusion Walker with front wheels for home use for 3 months. 1 Each 08/16/20 Active gabapentin (NEURONTIN) 300 mg capsuleIndications :Acute postoperative pain Take 2 Capsules (600 mg) by mouth two times daily for 7 days. 10 Capsule 08/16/20 24 024 Active HYDROmorphone (DILAUDID) 2 mg tabletIndications: S/P lumbar spinal fusion,Acute postoperative pain Take 1-2 Tablets (2-4 mg) by mouth every 4 hours if needed for Pain. 35 Tablet 08/16/20 Active sennosides-docusat e (SENOKOT S) (8.6-50 mg) tabletIndications: Drug-induced constipation Take 1-4 Tablets by mouth 2 times daily if needed for Constipation (to prevent/treat opioid-induced constipation). 25 Tablet 08/16/20 Active hydrOXYzine HCL (ATARAX) 10 mg tabletIndications: Anxiety Take 1 Tablet (10 mg) by mouth every 6 hours if needed for Anxiety (pain-related anxiety). 15 Tablet 08/16/20 Active bisacodyL (DULCOLAX) 10 mg suppositoryIndicat ions:Drug-induced constipation Insert 1 Suppository (10 mg) rectally once daily if needed for Constipation 2nd choice. 4 Suppository 08/16/20 Active polyethylene glycoL (MIRALAX) 17 gram/scoop powderIndications: Drug-induced constipation Take 1 scoop (17 g) by mouth or nasogastric tube once daily if needed for Constipation. 238 g 08/16/20 Active methocarbamoL (ROBAXIN) 500 mg tabletIndications: S/P lumbar spinal fusion,Acute postoperative pain Take 1 Tablet (500 mg) by mouth every 6 hours if needed for Muscle Spasm. 20 Tablet 08/16/20 Active ondansetron (ZOFRAN ODT) 4 mg disintegrating tabletIndications: PONV (postoperative nausea and vomiting) Place 1 Tablet (4 mg) on the tongue every 8 hours if needed for Nausea/Vomiting. 20 Tablet 10/17/20 24 Active zolpidem (AMBIEN) 10 mg tablet Take 1 tablet by mouth at bedtime if needed for Sleep. 0 08/31/20 12 024 Discontinued( Pharmacist change per medication history (E-cancel not sent)) nicotine 21 mg/24 hr (NICODERM; HABITROL) 21 mg/24 hr patch Apply 1 Patch on dry, clean, hairless skin once daily if needed for Nicotine Craving. 21 Patch 02/20/20 14 024 Discontinued( Other - add note to specify (E-cancel not sent)) methotrexate (RHEUMATREX) 2.5 mg tablet Take 6 tablets by mouth once weekly. 0 08/30/20 15 024 Discontinued( Pharmacist change per medication history (E-cancel not sent)) hydroxychloroquine (PLAQUENIL) 200 mg tablet Take 1 tablet by mouth once daily. 0 08/30/20 15 024 Discontinued( Pharmacist change per medication history (E-cancel not sent)) gabapentin (NEURONTIN) 300 mg capsule Take 600 mg by mouth at bedtime. 0 08/30/20 15 024 Discontinued( *IP Discontinued) cyclobenzaprine (FLEXERIL) 10 mg tabletIndications: Post-op pain Take 1 tablet by mouth 3 times daily if needed for Muscle Spasm. 40 tablet 09/03/20 15 Discontinued( Other - add note to specify (E-cancel not sent)) sennosides-docusat e, 8.6-50 mg, (SENOKOT S) 8.6-50 mg tabletIndications: Prophylactic measure Take 1-4 tablets by mouth 2 times daily if needed for constipation. 30 tablet 09/03/20 15 024 Discontinued( Pharmacist change per medication history (E-cancel not sent)) METHOCARBAMOL ORAL Take by mouth every 8 hours if needed. 024 Discontinued( Pharmacist change per medication history (E-cancel not sent)) oxyCODONE (OXYCONTIN) 10 mg Sustained-Release tablet Take 10 mg by mouth every 12 hours. 024 Discontinued( Pharmacist change per medication history (E-cancel not sent)) oxyCODONE (ROXICODONE) 5 mg immediate release tablet Take 5-10 mg by mouth every 4 hours if needed for Pain. Discontinued( Pharmacist change per medication history (E-cancel not sent)) DULoxetine (CYMBALTA) 60 mg Delayed-release capsule Take 60 mg by mouth once daily. Discontinued( Pharmacist change per medication history (E-cancel not sent)) acetaminophen (TYLENOL) 325 mg tabletIndications: Post-operative pain Take 2 tablets by mouth every 4 hours if needed for Headache, Pain or Temp>101.5F (38.6C) (For mild pain.). Max acetaminophen dose: 4000mg in 24 hrs. 20 tablet 09/21/20 Discontinued( Other - add note to specify (E-cancel not sent)) hydrOXYzine pamoate (VISTARIL) 25 mg capsuleIndications :Post-operative pain Take 1 capsule by mouth every 6 hours if needed for Itching, Anxiety or pain. 20 capsule 09/21/20 Discontinued( Pharmacist change per medication history (E-cancel not sent)) nicotine (NICOTROL) 10 mg inhalerIndications :Tobacco use disorder Inhale 10 mg by mouth every hour if needed for Nicotine Craving. 10 cartridge 09/21/20 Discontinued( Pharmacist change per medication history (E-cancel not sent)) lidocaine 5% (LIDODERM) 5 %(700 mg/patch) patchIndications:N akua pain Apply 1 patch topically to skin once daily (On for 12 hours off for 12 hours). 30 Patch 09/21/20 Discontinued( Other - add note to specify (E-cancel not sent)) KETAMINE HCL (KETAMINE 8%-GABAPENTIN 6%-LIDOCAINE 2.5%) gelIndications:Pos t-operative pain Apply 0.3-1 mL topically to affected area(s) 4 times daily. Apply to affected area four times daily. 1 Tube 0 09/21/20 15 Discontinued( Other - add note to specify (E-cancel not sent)) traMADoL (ULTRAM) 50 mg tablet Take 50 mg by mouth every 6 hours if needed for Pain. Discontinued( *IP Discontinued) leflunomide (ARAVA) 20 mg tablet Take 20 mg by mouth once daily. 024 Discontinued( Pharmacist change per medication history (E-cancel not sent)) hydrOXYzine pamoate (VISTARIL) 50 mg capsule Take 50 mg by mouth once daily in the evening. 024 Discontinued( Other - add note to specify (E-cancel not sent)) ibuprofen (ADVIL; MOTRIN) 200 mg tablet Take 800 mg by mouth every 6 hours if needed. 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 Leukocytosis 04/08/2014 Anemia 04/08/2014 Hyponatremia 04/08/2014 Hypocalcemia 04/08/2014 ACP (advance care planning) 04/08/2014 Overview (04/08/2014): Full Code Laila Chong (daughter) [phone] Chilo Chong (son) [phone] Fever 02/15/2014 Insomnia, unspecified 12/27/2012 Tobacco use disorder 12/27/2012 Resolved Problems Problem Noted Date Diagnosed Date Resolved Date Empyema 02/15/2014 04/08/2014 Encounters Date Type Department Care Team Description 08/14/2024 2:31 PM CDT Anesthesia Event [facility] [address] [place] [address] Janeth Ryan CRNA Koss, Michael, CRNA Student 08/14/2024 1:07 PM CDT - 08/14/2024 6:48 PM CDT Surgery [facility] [address] [place] [address] Favian Balderas MD Anterior Spine interbody Fusion L5-S1, Posterior Spine Fusion with Instrumentation L5-S1 08/14/2024 11:27 AM CDT - 2024 2:52 PM CDT Hospital Encounter [facility] [address], [place] [address] Favian Balderas MD S/P lumbar spinal fusion (Primary Dx); Acute postoperative pain; Drug-induced constipation; Anxiety; PONV (postoperative nausea and vomiting) Discharge Disposition: Home Self Care 08/14/2024 Travel 08/11/2024 Travel from Last 3 Months Immunizations Name Administration Dates Next Due Influenza, IIV3 (Age >=3 years) 08/31/2012 Influenza, IIV4 08/29/2015 Tdap 03/01/2011 Family History Medical History Relation Name Comments Heart Disease Father [place] Cancer Maternal Grandfather stomach Relation Name Status Comments Father Maternal Grandfather Social History Tobacco Use Types Packs/Day Years Used Date Smoking Tobacco: Former Cigarettes 0.5 30 Smokeless Tobacco: Never Tobacco Cessation:Counseling Given: Not Answered Comments:Quit 07/2024 (per 08/09/24 H&P) Alcohol Use Standard Drinks/Week Comments Yes 0 (1 standard drink = 0.6 oz pur e alcohol) occas Sex and Gender Information Value Date Recorded Sex Assigned at Not on file Gender Identity Not on file Sexual Orientation Not on file Obstetrics History Last Filed Vital Signs Vital Sign Reading Time Taken Comments Blood Pressure 114/71 2024 7:51 AM CDT Pulse 90 2024 7:51 AM CDT Temperature 36.7 ??C (98.1 ??F) 2024 7:51 AM CD T Respiratory Rate 16 2024 7:51 AM CDT Oxygen Saturation 94% 2024 7:51 AM CDT Inhaled Oxygen Concentration - - Weight 70.3 kg (155 lb) 08/14/2024 12:25 PM CDT Height 160 cm (5' 3) 08/14/2024 12:25 PM CDT Body Mass Index 27.46 08/14/2024 12:25 PM CDT Plan of Treatment Health Maintenance Due Date [...] 01/30/2014 01/31/20 13, 03/30/2012 (Completed outside of [place] Location, [facility]) Lipids for age 45-75 11/14/2018 11/14/2013, 09/30/2011 (Completed outside of [place], [facility]) Tetanus booster 03/01/2021 03/01/2011 COVID-19 vaccine series (2023- season) 2024 09/03/2022, 01/03/2021 Influenza for age 50-64 07/02/2024 08/29/2015, 08/31 Pap test for age 21-65 07/15/2025 , 07/15/2022, 02/10/2019, Additional history exists Tdap Completed 03/01/2011 Pneumococcal series for age 6-64 Aged Out No longer eligible based on patient's age to complete this topic Medical Devices Implanted Type Area Verify Rep Device Identifier Shelf Expiration Date Model / Serial / Lot Bone 1-4mm 60cc Medtronic Fine Canclls Freeze Dried - [id number] Implanted:Qty: 1 on 08/14/2024 by Favian Balderas MD at [facility] N/A: Spine Medtronic Spine/Ortho [id number] 05/27/2028 [id number] / [id number] / [id number] Screw Lmbr Post 7.5x40mm Solera 5.5/6 Va Cocr - [id number] Implanted:Qty: 1 on 08/14/2024 by Favian Balderas MD at [facility] N/A: Spine Medtronic Spine/Ortho [id number] / / Spacer Lordotic Std 14mm 12deg Nanolock Tas - [id number] Implanted:Qty: 1 on 08/14/2024 by Favian Balderas MD at [facility] N/A: Spine Medtronic Spine/Ortho 01/15/2028 [id number] / / [id number] Screw Lmbr 6.5x25mm Endo Skeleton Tas Bone Alif Stand Alone - [id number] Implanted:Qty: 3 on 08/14/2024 by Favian Balderas MD at [facility] N/A: Spine Medtronic Spine/Ortho [id number] / / Set Screw Lmbr Ant 5.5mm Solera Break Off - [id number] Implanted:Qty: 2 on 08/14/2024 by Favian Balderas MD at [facility] N/A: Spine Medtronic Spine/Ortho [id number] / / Brittany Spinal 6x14.2mm Offset Z-Brittany Cd Horizon - [id number] Implanted:Qty: 1 on 08/14/2024 by Favian Balderas MD at [facility] N/A: Spine Medtronic Spine/Ortho [id number] / / Screw Lmbr Post 8.5x35mm Solera 5.5/6 Va Cocr - [id number] Implanted:Qty: 1 on 08/14/2024 by Favian Balderas MD at [facility] N/A: Spine Medtronic Spine/Ortho [id number] / / Screw Lmbr Post 9.5x35mm Solera 5.5/6 Va Cocr - [id number] Implanted:Qty: 1 on 08/14/2024 by Favian Balderas MD at [facility] N/A: Spine Medtronic Spine/Ortho [id number] / / Screw Lmbr Post 7.5x35mm Solera 5.5/6 Va Cocr - [id number] Implanted:Qty: 1 on 08/14/2024 by Favian Balderas MD at [facility] N/A: Spine Medtronic Spine/Ortho [id number] / / Explanted Type Area Verify Rep Device Identifier Shelf Expiration Date Model / Serial / Lot Explant Explanted:Qty: 1 on 08/14/2024 at [facility] N/A: Spine Description:BRITTANY X2 SET SCREW X1 Procedures Procedure Name Priority Date/Time Associated Diagnosis Comments BASIC METABOLIC PANEL Early AM 08/16/2024 7:06 AM CDT HEMOGLOBIN Early AM 08/16/2024 7:06 AM CDT WHITE BLOOD COUNT Early AM 08/16/2024 7:0 6 AM CDT WHITE BLOOD COUNT KELLY 08/15/2024 7:0 3 AM CDT HEMOGLOBIN Early AM 08/15/2024 7:03 AM CDT XR SPINE LUMBAR 2 VIEWS PORTABLE Routine 08/14/2024 5:54 PM CDT XR SPINE 1 VIEW PORTABLE Routine 08/14/2024 3:56 PM CDT XR SPINE 1 VIEW PORTABLE Routine 08/14/2024 3:33 PM CDT ENDOTRACHEAL TUBE Routine 08/14/2024 3:1 6 PM CDT ENDOTRACHEAL TUBE Routine 08/14/2024 3:1 6 PM CDT ENDOTRACHEAL TUBE Routine 08/14/2024 3:1 6 PM CDT REMOVAL HARDWARE SPINAL IMPLANTS Elective 08/14/2024 1:46 PM CDT Spondylolisthesis , Lumbosacral M43.17 Stenosis, Lumbosacral M48.07 Case Notes CELL SAVER, A: 4085, A: TITANP: DEE COMBO, P: SOLERA 5.5, GASTELUM, as DECOMPRESSION SPINE LEVEL 01 Elective 08/14/2024 1:46 PM CDT Spondylolisthesis , Lumbosacral M43.17 Stenosis, Lumbosacral M48.07 Case Notes CELL SAVER, A: 4085, A: TITANP: DEE COMBO, P: SOLERA 5.5, GASTELUM, as FUSION ANTERIOR POSTERIOR SPINE LEVEL 01 Elective 08/14/2024 1:46 PM CDT Spondylolisthesis , Lumbosacral M43.17 Stenosis, Lumbosacral M48.07 Case Notes CELL SAVER, A: 4085, A: TITANP: DEE COMBO, P: SOLERA 5.5, GASTELUM, as GLUCOSE METER Timed 08/14/2024 1:07 PM CDT ANTIBODY IDENTIFICATION LAB USE ONLY STAT 08/14/2024 12:37 PM CDT LITTLE C ANTIGEN TYPE MONO LAB USE ONLY STAT 08/14/2024 12:37 PM CDT BIG E ANTIGEN TYPE LAB USE ONLY STAT 08/14/2024 12:37 PM CDT TYPE & SCREEN Preop 08/14/2024 12:37 PM CDT RED BLOOD CELLS EA UNIT Preop 08/14/2024 12:33 PM CDT RED BLOOD CELLS EA UNIT Preop 08/14/2024 12:33 PM CDT ANTIBODY IDENTIFICATION EACH PANEL Preop 08/14/2024 12:33 PM CDT SCAN-OPERATIVE/PROCED URE REPORT 08/14/2024 12:00 AM CDT SCAN-CARDIAC STRIP 08/14/2024 12 :00 AM CDT SCAN CORRESP-EKG RESULTS 08/10/2024 10:07 AM CDT SCAN CORRESP-LABORATORY RESULTS 08/10/2024 8:54 AM CDT HPV HIGH RISK Routine 07/15/2022 2:00 PM CDT LIPID PANEL Routine 11/14/2013 12:02 PM SHUTTLE REPAIRER Routine general medical examination at a health care facility from Last 3 Months or Most Recently Relevant to Health Maintenance Results * (ABNORMAL) WBC AM (08/16/2024 7:06 AM CDT) Only the most recent of2 resultswithin the time period is included. WHITE BLOOD COUNT 13.9(H) 4.5 - 11.0 thou/cu mm 08/16/2024 7:29 AM CDT [facility] TRAL LABORATORY NRBC 0.0 % 08/16/2024 7:29 AM CDT [facility] TR[facility] LAB[facility] ABS NRBC 0.0 thou /cu mm 08/16/2024 7:29 AM CDT [facility] Blood BLOOD SPECIMEN / Unknown Venipuncture / Unknown 08/16/2024 7:06 AM CDT 08/16/2024 7:20 AM CDT Linda Gomez NP HEMATOLOGY Performing Organization Address City/[facility]/ZIP Co de Phone Number [facility] [address] [place] [address], * (ABNORMAL) Hemoglobin AM (08/16/2024 7:06 AM CDT) Only the most recent of2 resultswithin the time period is included. HEMOGLOBIN 9.4(L) 12.0 - 16.0 g/dL 08/16/2024 7:29 AM CDT [facility] MCV 93 80 - 100 fL 08/16/2024 7:29 AM CDT [facility] Blood BLOOD SPECIMEN / Unknown Venipuncture / Unknown 08/16/2024 7:06 AM CDT 08/16/2024 7:20 AM CDT Linda Gomez NP HEMATOLOGY Performing Organization Address City/[facility]/ZIP Co de Phone Number [facility] [address] [place] [address], * (ABNORMAL) Basic metabolic panel AM (08/16/2024 7:06 AM CDT) SODIUM 137 136 - 145 mmol/L 08/16/2024 7:48 AM CDT [facility] TR[facility] LABORATORY POTASSIUM 3.7 3.5 - 5.1 mmol/L 08/16/2024 7:48 AM CDT [facility] CHLORIDE 103 98 - 107 mmol/L 08/16/2024 7:48 AM CDT [facility] CO2,TOTAL 27 22 - 29 mmol/L 08/16/2024 7:48 AM CDT [facility] ANION GAP 7 5 - 18 08/16/2024 7:48 AM CDT [facility] GLUCOSE 115(H) 70 - 99 mg/dL 08/16/2024 7:48 AM CDT [facility] CALCIUM 8.5(L) 8.8 - 10.2 mg/dL 08/16/2024 7:48 AM CDT [facility] BUN 6(L) 8 - 23 mg/dL 08/16/2024 7:48 AM CDT [facility] CREATININE 0.64 0.50 - 0.90 mg/dL 08/16/2024 7:48 AM CDT [facility] TR[facility] LAB[facility] BUN/CREAT RATIO 9(L) 10 - 20 7:48 AM CDT [facility] eGFR >90 >90 mL/min/1.7 3m2 08/16/2024 7:48 AM CDT [facility] Comment:As of 2022, eG FR is calculated by the CKD-EPI creatinine equation without race adjustment. ??eGFR can be influenced by muscle mass, exercise, and diet. ??The reported eGFR is an estimation only and is only applicable if the renal function is stable. Blood BLOOD SPECIMEN / Unknown Venipuncture / Unknown 08/16/2024 7:06 AM CDT 08/16/2024 7:20 AM CDT Linda Gomez NP [facility] [address] [place] [id number], * XR SPINE LUMBAR 2 VIEWS PORTABLE (08/14/2024 5:54 PM CDT) Anatomical Region Laterality Modality Spine, LUMBAR SPINE Digital Radi ography 08/15/2024 2:35 PM CDT Narrative 08/15/2024 2:35 PM CDT For Patients: ??As a result of the Century Cures Act, medical imaging exams and procedure reports are released immediately into your electronic medical record. ??You may view this report before your referring provider. ??If you have questions, please contact your health care provider. Indication: Spinal localization. Anterior Spine interbody Fusion L5-S1, Posterior Spine Fusion L5-S1, Decompression - Foraminotomy L5-S1, Discectomy L5-S1 Technique: Two portable views of the lumbar spine Comparison: Lumbar spine x-ray from earlier same day Findings: Stable appearance of previously noted spinal fusion changes from L3-L5. Interval extension of the spinal fusion to the S1 level, with posterior transpedicular screws and rods, and anterior interbody fusion device. Dictated by Trudy James MD @ Aug 15 2024 ??2:35PM (Electronically Signed) [email or web address] Procedure Note Trudy James, DO - 08/15/2024 For Patients: As a result of the Cures Act, medical imagingexams and procedure reports are released immediately into your electronicmedical record. You may view this report before your referring provider.If you have questions, please contact your health care provider. Indication: Spinal localization. Anterior Spine interbody Fusion L5-S1, Posterior Spine Fusion L5-S1, Decompression - Foraminotomy L5-S1, Discectomy L5-S1 Technique: Two portable views of the lumbar spine Comparison: Lumbar spine x-ray from earlier same day Findings: Stable appearance of previously noted spinal fusion changes from L3-L5.Interval extension of the spinal fusion to the S1 level, with posteriortranspedicular screws and rods, and anterior interbody fusion device. Dictated by Trudy James MD @ Aug 15 2024 2:35PM (Electronically Signed) [email or web address] Favian Balderas MD GENERAL IMAGING * XR SPINE 1 VIEW PORTABLE (08/14/2024 3:56 PM CDT) Only the most recent of2 resultswithin the time period is included. Anatomical Region Laterality Modality Spine, CERVICAL SPINE, THORACIC SPINE, LUMBAR SP INE Digital Radiography Narrative 08/14/2024 4:23 PM CDT Indication: Spinal localization. Technique: Multiple radiographs of the lumbar spine. Findings: L5-S1 discectomy with interbody spacer placement. ??L3/L4 5 interbody fusions with osseous integration of the vertebral bodies. ??L3-L5 dorsolateral fusion with subtle lucencies suggestive of loosening. Favian Balderas MD GENERAL IMAGING * HCHG TUBE PR1, HCHG INSTRUMENT DISP PR10, HCHG STYLET PR1 (08/14/2024 3:16 PM CDT) Narrative Janeth Ryan CRNA - 08/14/2024 3:16 PM CDT Janeth Ryan CRNA ? 08/14/2024 ??3:17 PM Procedure: ETT Patient location during procedure: OR ETT Properties Mask Ventilation: easy Final Technique: video laryngoscopy Type: straight Location: oral Cuffed: yes Tube Size: 7.0 mm Stylet: yes Laryngoscope Blade: Glidescope Blade Size: 3 Insertion Attempts: 1 Placement Verification: auscultation and end tidal CO2 Assessment: pharynx clear and atraumatic Secured at: 23 Measured From: lips Bite Block: soft Difficulty: 0 (not difficult) Janeth Ryan CRNA ANESTHESIA PX NOTE ORDERABLES * GLUCOSE METER (08/14/2024 1:07 PM CDT) Pathologist [facility] GLUCOSE METER 96 65 - 100 mg/dL 08/15/2024 5:37 AM CDT [facility] Blood BLOOD SPECIMEN / Unknown 08/14/2024 1:07 PM CDT 08/15/2024 5:37 AM CDT Favian Balderas MD [facility]Y [facility] [address] [place] [address], * LITTLE C ANTIGEN TYPE MONO LAB USE ONLY (08/14/2024 12:37 PM CDT) [facility] LITTLE c ANTIGEN Testing Complete 08/14/2024 3:03 PM CDT [facility] Blood BLOOD SPECIMEN / Unknown IV Start / Unknown 08/14/2024 12:37 PM CDT 08/14/2024 12:43 PM CDT Favian Balderas MD BLOOD BANK [facility] [employer]-CENTRAL LAB BLOOD BANK [address] [place] [address], * (ABNORMAL) Type and Screen (08/14/2024 12:37 PM CDT) Pathologist [facility] ABORH A Rh Positive 08/14/2024 1:29 PM CDT [facility] ANTIBODY SCREEN Positive(A) Negative 08/14/2024 1:29 PM CDT [facility] SPECIMEN EXPIRATION DATE/TIME 08/17/24 23:59 08/14/2024 1:29 PM CDT [facility] Blood BLOOD SPECIMEN / Unknown IV Start / Unknown 08/14/2024 12:37 PM CDT 08/14/2024 12:43 PM CDT Favian Balderas MD BLOOD BANK [facility] [employer]-CENTRAL LAB BLOOD BANK [address] [place] [address], * BIG E ANTIGEN TYPE LAB USE ONLY (08/14/2024 12:37 PM CDT) [facility] BIG E ANTIGEN Testing Complete 08/14/2024 3:03 PM CDT [facility] Blood BLOOD SPECIMEN / Unknown IV Start / Unknown 08/14/2024 12:37 PM CDT 08/14/2024 12:43 PM CDT Favian Balderas MD BLOOD BANK [facility] [employer] [facility] [address] [place] [address], * (ABNORMAL) ANTIBODY IDENTIFICATION LAB USE ONLY (08/14/2024 12:37 PM CDT) [facility] ANTIBODY IDENTIFICATION Anti-Big E(A) 08/14/2024 3:11 PM CDT [facility] [employer]-CENTRAL LAB BLOOD BANK Blood BLOOD SPECIMEN / Unknown IV Start / Unknown 08/14/2024 12:37 PM CDT 08/14/2024 12:43 PM CDT Narrative [facility]TR[facility] BLOOD BANK - 08/14/2024 3:11 PM CDT Blood products may be delayed. Draw patient 24 hours prior to transfusion. Draw one red top and two purple top tubes for all Type and Screen orders. This patient's serological work-up may have included protocols and/or reagents that have not been cleared or approved by the U.S. Food and Drug Administration. If specific information is required, please contact the performing laboratory Favian Balderas MD BLOOD BANK Performing Organization Address City/[facility]/ZIP Co de Phone Number [facility]TRAL LAB BLOOD BANK [address] [place] [address], * ANTIBODY IDENTIFICATION EACH PANEL (08/14/2024 12:33 PM CDT) [facility]-CENTRAL LAB BLOOD BANK PANEL TIFFANY ID Panel Antibody ID [facility] BLOOD B[facility] Favian Balderas MD BLOOD BANK Performing Organization Address City/[facility]/ZIP Co de Phone Number [facility] [address] [place] [address], * RED BLOOD CELLS EA UNIT (08/14/2024 12:33 PM CDT) Only the most recent of2 resultswithin the time period is included. CROSSMATCH Compatible Compatible [facility] [employer] LAB-CENTRAL LAB BLOOD BANK PRODUCT BLOOD TYPE A Rh Positive [facility] BLOOD BANK PRODUCT ID NUMBER [id number] [facility]OD [facility] PRODUCT STATUS /Relea sed [facility] B[facility]OD [facility] PRODUCT DESCRIPTION RBC -1 LR [facility] PRODUCT CODE [id number] [facility] Favian Balderas MD BLOOD BANK [facility] BLOOD BANK [address] [place] [address], * SCAN-CARDIAC STRIP (08/14/2024 12:00 AM CDT) Narrative 08/14/2024 12:00 AM CDT Ordered by an unspecified provider. Other Clinical Staff OTHER * SCAN-OPERATIVE/PROCEDURE REPORT (08/14/2024 12:00 AM CDT) Narrative 08/14/2024 12:00 AM CDT Ordered by an unspecified provider. Other Clinical Staff OTHER * SCAN CORRESP-EKG RESULTS (08/10/2024 10:07 AM CDT) Narrative 08/10/2024 10:07 AM CDT Ordered by an unspecified provider. Other Clinical Staff OTHER * SCAN CORRESP-LABORATORY RESULTS (08/10/2024 8:54 AM CDT) Narrative 08/10/2024 8:54 AM CDT Ordered by an unspecified provider. Other Clinical Staff OTHER * HPV HIGH RISK (07/15/2022 2:00 PM CDT) TYPE 16 Negative Negative 07/20/2022 3:12 PM CDT [facility] TYPE 18 Negative Negative 07/20/2022 3:12 PM CDT [facility] TRAL LABORATORY OTHER HIGH RISK TYPES Negative Negative 07/20/2022 3:12 PM CDT [facility] TRAL LABORATORY Other (Cervical/Vagina l) 07/15/2022 2:00 PM CDT 07/17/2022 9:02 AM CDT Narrative [facility] - 07/20/2022 3:12 PM CDT HPV types 16, 18, 31, 33, 35, 39, 45, 51, 52, 56, 58, 59, 66 and 68 DNA were undetectable or below the pre-set threshold. Methodology: Rola Matt 4800 HPV Test Veean Lopez PA-C MICROBIOLOGY [facility]-C[facility]AL LABORATORY [address] [place] [address], * (ABNORMAL) LIPID PANEL (11/14/2013 12:02 PM SHUTTLE REPAIRER) CHOLESTEROL,TOTA L 164 100 - 199 mg/dL [facility] TRIGLYCERIDES 127 <150 mg/dL [facility] HDL CHOLESTEROL 32(L) >40 mg/dL [facility] CHOL/HDL RATIO 5.13(H) <4.50 [facility] NON-HDL CHOLESTEROL 132 Undefined mg/dL [facility] LDL CHOLESTEROL 107 <131 mg/dL [facility] PATIENT STATUS Fasting [facility] Blood specimen (specimen) BLOOD SPECIMEN / Unknown 11/14/2013 12:02 PM SHUTTLE REPAIRER 11/14/2013 11:57 AM SHUTTLE REPAIRER Arnaldo Brumfield MD CHEMISTRY [facility] [place]NAL ZIP [id number] [place] [address] from Last 3 Months or Most Recently Relevant to Health Maintenance Advance Directives * Full Code (Latest Code Status on File) Date Activated Date Inactivated Comments 08/14/2024 9:16 PM 2024 4:52 PM Question Answer Comments Code Status Discussion: Reviewed Preferences * Full Code Date Activated Date Inactivated Comments 09/21/2015 5:45 AM 09/21/2015 7:47 PM * Full Code Date Activated Date Inactivated Comments 09/02/2015 9:36 AM 09/03/2015 7:42 PM * Full Code Date Activated Date Inactivated Comments 09/02/2015 6:13 AM 09/02/2015 9:36 AM * Full Code Date Activated Date Inactivated Comments 04/08/2014 7:57 PM 04/11/2014 2:58 PM Care Teams Donor Recruiter Relationship Specialty Start Date End Date Veena Lopez PA-C [address], [place] [address] PCP - General Emergency Medicine 08/11/24
--- OUTSIDE RECORDS SUMMARY | 2024-08-22 11:30 | XMS_ITS | Clinical Summary ---
Author Organization [facility] Address [address] [place] [address] Care Team Providers Care Hospice Director Name Role Phone Unavailable Primary Care Provider [...]
== END 2024-08-22 11:25 | disposition home or self-care (01) ==
LOC: LKVREF 11:27
PROVIDERS: PCP Physician Assistant Medical; Visit Provider Emergency Medicine
DX: Z98.1 Arthrodesis status (principal); T81.49XA Infection following a procedure, other surgical site, initial encounter
CPT/HCPCS: 87070

== ENCOUNTER 2025-02-26 10:51 | Outpatient (CLI) | payer OTHER, SELFPAY ==
[2025-02-27 00:39] LABS: Chlamydia DNA Amplified* NOT DETECTED (No Detected); GC DNA Amplified* NOT DETECTED (No Detected)
[2025-02-28 00:01] LABS: HPV Source Cervix; HPV, High Risk by TMA Not Detected
== END 2025-02-26 10:52 | disposition home or self-care (01) ==
PROVIDERS: PCP Physician Assistant Medical; Visit Provider Physician Assistant Medical
DX: E78.5 Hyperlipidemia, unspecified (principal); Z12.4 Encounter for screening for malignant neoplasm of cervix; Z11.3 Encounter for screening for infections with a predominantly sexual mode of transmission; Z11.51 Encounter for screening for human papillomavirus (HPV)
CPT/HCPCS: 80061; 87491; 87591; 87624; 87625; 88141; 88142

== ENCOUNTER 2025-03-02 13:54 | Outpatient (CLI) | payer OTHER, SELFPAY ==
--- NOTE | 2025-03-02 14:00 | CRLHL7_ITS ---
For Patients: As a result of the Century Cures Act, medical imaging exams and procedure reports are released immediately into your electronic medical record. You may view this report before your referring provider. If you have questions, please contact your health care provider. INDICATION: Pelvic pain COMPARISON: CT 10/14/2023 TECHNIQUE: 2D castro scale and color Doppler images were acquired of the pelvis using a transabdominal and transvaginal approach. FINDINGS: Sonographic images demonstrate a normal size and smooth outer contour of the uterus. Uterus measures 6.4 cm in length by 2.8 cm in AP diameter by 3.8 cm in transverse dimension. The myometrium has a normal uniform echotexture. The endometrial lining appears normal and measures 2.3 mm in composite thickness. The ovaries are not visualized. There are no suspicious fluid collections within the cul-de-sac. IMPRESSION: Normal uterus. Ovaries not visualized. Dictated by Petey Young MD @ 03/03/2025 5:34:18 PM (Electronically Signed)
--- NOTE | 2025-03-02 15:00 | CRLHL7_ITS ---
For Patients: As a result of the Century Cures Act, medical imaging exams and procedure reports are released immediately into your electronic medical record. You may view this report before your referring provider. If you have questions, please contact your health care provider. INDICATION: Lung cancer screening. TECHNIQUE: Low-dose lung cancer screening non-contrast CT chest. Dose reduction techniques were used. COMPARISON: CT 09/27/2023 FINDINGS: NODULES: Micronodule left upper lobe 01/21 stable LUNGS AND PLEURA: Normal. MEDIASTINUM: Normal. CORONARY ARTERY CALCIFICATION: Present. LIMITED UPPER ABDOMEN: Normal. MUSCULOSKELETAL: Normal. IMPRESSION: 1. Stable micronodule. LUNG-RADS CATEGORY: 2: Benign. RADIOLOGIST RECOMMENDATION: Continue annual screening with low-dose CT chest in 12 months. Please note that all CT scans at this facility use dose modulation, iterative reconstruction, and/or weight-based dosing when appropriate to reduce radiation dose to as low as reasonably achievable. Dictated by Rita Parker MD @ 03/05/2025 12:53:06 PM (Electronically Signed)
== END 2025-03-02 13:55 | disposition home or self-care (01) ==
PROVIDERS: PCP Physician Assistant Medical; Visit Provider Physician Assistant Medical
DX: Z12.2 Encounter for screening for malignant neoplasm of respiratory organs (principal); R91.8 Other nonspecific abnormal finding of lung field; Z87.891 Personal history of nicotine dependence; R10.2 Pelvic and perineal pain
CPT/HCPCS: 71271; 76830; 76856

== ENCOUNTER 2025-07-31 13:45 | Outpatient (CLI) | payer OTHER, SELFPAY | END 2025-07-31 13:46 | disposition home or self-care (01) | LOC: NFLDREF 08-02 08:46 | PROVIDERS: PCP Physician Assistant Medical; Referring Provider Physician Assistant Medical; Visit Provider Physician Assistant | DX: N39.0 Urinary tract infection, site not specified (principal) | CPT/HCPCS: 87086 ==

== ENCOUNTER 2025-08-08 09:03 | Outpatient (CLI) | payer OTHER, SELFPAY | END 2025-08-08 09:04 | disposition home or self-care (01) | LOC: NFLDREF 08-11 17:21 | PROVIDERS: PCP Physician Assistant Medical; Referring Provider Physician Assistant Medical; Visit Provider Physician Assistant Medical | DX: E78.5 Hyperlipidemia, unspecified (principal) | CPT/HCPCS: 80061 ==